=== PATIENT | female | born 1965 | race Caucasian/White ===

== ENCOUNTER 2022-01-23 07:26 | Inpatient (IN) ==
--- NOTE | 2022-01-19 10:00 | Anesthesiology Consultation ---
Date of Service January 19, 2022 Assessment & Plan (1) Encounter for pre-operative examination: - medical pre-op evaluation and clearance 01/15/2022: "...Preop for spinal surgery 01/23...In view of negative work up and no clinical symptoms DO NOT see any absolute contraindication to surgery..." - COVID screening: Per boat outboard engine mechanic on 01/15/2022: Travel screen negative, no known COVID-19 positive contacts or current COVID-19 related symptoms in past 2 weeks. Patient vaccinated. Surgeon arranging preop COVID testing, scheduled 01/21/2022. Awaiting results. Chart Review Chart Review: Acceptable Risk for Surgery and Patient NOT seen in Pre Admission Testing History Surgery Operation Date: 01/23/22 09:10 Proposed Procedures p L4-L5 Decompression Fusion Spinal Cord Monitoring - Dl Beckman DO Height/Weight Height: 5 ft 3 in Weight: 67.585 kg Allergies Allergy/AdvReac Type Severity Reaction Status Date / Time No Known Allergies Allergy Verified 01/15/22 10:47 Medications Home Medications Medication Instructions Recorded Confirmed Last Taken escitalopram oxalate 20 mg tablet 20 mg PO QAM 01/15/22 01/15/22 Unknown (Lexapro) estradiol 1 mg tablet 1 mg PO QAM 01/15/22 01/15/22 Unknown ibuprofen 200 mg capsule 400 mg PO QID PRN 01/15/22 01/15/22 Unknown ondansetron HCl 4 mg tablet 4 mg PO Q6H PRN 01/15/22 01/15/22 Unknown trazodone 100 mg tablet 200 mg PO HS 01/15/22 01/15/22 Unknown Past Medical History Medical History (Updated 01/19/22 @ 09:59 by Bambi Mcgee PA-C) Anxiety Cancer MELANOMA LEFT ARM/BACK-EXCISED Chronic back pain TO RIGHT LEG Depression Eating disorder ANOREXIA, BULIMIA-UNDER CONTROL CURRENTLY Esophagitis UNDER CONTROL Gastroparesis GERD (gastroesophageal reflux disease) UNDER CONTROL H/O Randi-Chicas syndrome Hiatal hernia History of unintended awareness under general anesthesia during a colonoscopy per PAT RN call with pt Temporomandibular joint disorder CLICKS-NO LOCKING Past Family History Family History Father Family history of diabetes mellitus Grandmother (Maternal) Family hx of colon cancer Grandfather (Maternal) Family hx of colon cancer Past Surgical History Surgical History (Updated 01/19/22 @ 09:53 by Bambi Mcgee PA-C) History of abdominoplasty History of appendectomy History of back surgery History of bladder surgery SLING History of cholecystectomy History of colonoscopy 2020 History of esophagogastroduodenoscopy (EGD) History of hysterectomy TOTAL Nausea and vomiting after administration of anesthetic agent Social History Smoking Status: Never smoker Do You Dip or Chew Tobacco: No Hx Alcohol Use: No Hx Substance Use: No Lab Results Anesthesia Preop Results Results Lab Comments: 01/05/2022 WBC: 6.1 H/H: 13/39 PLATELETS: 259 SODIUM: 139 POTASSIUM: 4.0 CHLORIDE: 105 CO2: 25 BUN: 11 CREATININE: 0.9 GLUCOSE: 72 PT: 11.2 PTT: 31.8 INR: 0.98 UA: small blood, small leuk esterase, no growth on culture Testing Electrocardiogram Date: 01/05/22 Sinus rhythm, rate 80 bpm Chest X-Ray No active cardiopulmonary disease
[~2022-01-23 07:26] MED LIST: ACETAMINOPHEN 500 MG TAB PO SCH; CeleBREX 200 MG CAP PO SCH; GABAPENTIN 900 MG DOSE PO SCH; LR 15ML/HR IV SCH; ceFAZolin 2000MG 2,000 MG/15 ML SYR IV SCH
[2022-01-23] MEDS ORDERED: MIDAZOLAM HCL 1 MG/ML 2ML VIAL ONE (08:18)
[2022-01-23] MEDS ORDERED: fentaNYL citrate 100 MCG/2 ML VIAL ONE (08:18)
[2022-01-23] MEDS ORDERED: PROPOFOL IV EMULSION 10 MG/ML 20 ML VIAL IV ONE (08:20)
[2022-01-23] MEDS ORDERED: ONDANSETRON INJ 2 MG/ML 2 ML VIAL ONE ×2 (08:20→10:42)
[2022-01-23] MEDS ORDERED: DEXAMETHASONE SOD INJ 4 MG/ML VIAL ONE (08:20)
[2022-01-23] MEDS ORDERED: LIDOCAINE 2% 2 ML VIAL/AMP(20MG/ML) INFIL ONE (08:20)
--- NOTE | 2022-01-23 08:27 | History & Physical Bridge Note ---
Date of Service January 23, 2022 History & Physical Bridge Note I have examined the patient, reviewed the History & Physical and in the interval since the performance of the History & Physical I have noted the following changes of clinical significance: no changes noted
--- NOTE | 2022-01-23 08:28 | History & Physical Report ---
Date of Service January 23, 2022 Assessment & Plan (1) Neurogenic claudication due to lumbar spinal stenosis: Plan: L4-L5 decompression fusion History of Present Illness Chief Complaint: Back and leg pain Primary Care Provider: NO PCP This is a 56-year-old female presents with chronic persistent back and leg pain. Failing course of nonoperative care is here for surgical invention. Allergies Allergy/AdvReac Type Severity Reaction Status Date / Time No Known Allergies Allergy Verified 01/23/22 07:59 Home Medications Medication Instructions Recorded Confirmed Type escitalopram oxalate 20 mg tablet 20 mg PO QAM 01/15/22 01/15/22 History (Lexapro) estradiol 1 mg tablet 1 mg PO QAM 01/15/22 01/15/22 History ibuprofen 200 mg capsule 400 mg PO QID PRN 01/15/22 01/23/22 History ondansetron HCl 4 mg tablet 4 mg PO Q6H PRN 01/15/22 01/15/22 History trazodone 100 mg tablet 200 mg PO HS 01/15/22 01/23/22 History Past Med/Surg History Medical History (Updated 01/23/22 @ 08:28 by Dl Beckman DO) Anxiety Cancer MELANOMA LEFT ARM/BACK-EXCISED Chronic back pain TO RIGHT LEG Depression Eating disorder ANOREXIA, BULIMIA-UNDER CONTROL CURRENTLY Esophagitis UNDER CONTROL Gastroparesis GERD (gastroesophageal reflux disease) UNDER CONTROL H/O Randi-Chicas syndrome Hiatal hernia History of unintended awareness under general anesthesia during a colonoscopy per PAT RN call with pt Temporomandibular joint disorder CLICKS-NO LOCKING Surgical History History of abdominoplasty History of appendectomy History of back surgery History of bladder surgery SLING History of cholecystectomy History of colonoscopy 2020 History of esophagogastroduodenoscopy (EGD) History of hysterectomy TOTAL Nausea and vomiting after administration of anesthetic agent Family History Father Family history of diabetes mellitus Grandmother (Maternal) Family hx of colon cancer Grandfather (Maternal) Family hx of colon cancer Social History Smoking Status: Never smoker Second Hand Exposure: Yes (AUNTS SMOKE); Do You Dip or Chew Tobacco: No; Hx Alcohol Use: No Hx Substance Use: No Preferred Language: [place] Communication Ability: Effective Site Engineer Required: No Beliefs That Will Affect Care: None Current Living Situation: Family Current Living Situation Comment: 10 YR OLD [facility] LIVES WITH PT current occupational status: retired Other Information That Helps Us Care for You: No Feels Safe at Home: Yes Safety Concerns: Feels Safe At This Time Assistive Devices: Contacts Physical Exam Physical Exam: Patient is alert and oriented Heart regular rhythm Lungs clear
[2022-01-23] MEDS ORDERED: BUPIVACAINE/EPINEPHRINE 0.25% 1:200,000 30 ML VIAL ONE (08:51)
[2022-01-23] MEDS ORDERED: ceFAZolin 330 MG/ML 1 GM VIAL ONE (08:52)
[2022-01-23] MEDS ORDERED: ONDANSETRON INJ 2 MG/ML 2 ML VIAL IV PRN (09:19)
[2022-01-23] MEDS ORDERED: PROMETHAZINE HCL 12.5 MG in SODIUM CHLORIDE 0.9% 50 ML IV PRN ×2 (09:19→12:32)
[2022-01-23] MEDS ORDERED: fentaNYL citrate 100 MCG/2 ML VIAL IV PRN (09:19)
[2022-01-23] MEDS ORDERED: ATROPINE SULFATE 0.1 MG/ML 10ML SYR IV PRN (09:19)
[2022-01-23] MEDS ORDERED: ePHEDrine sulfate 50 MG/ML AMP IV PRN (09:19)
[2022-01-23] MEDS ORDERED: HYDROmorphone INJ 2 MG/ML SYR/VIAL IV PRN (09:19)
[2022-01-23] MEDS ORDERED: FAMOTIDINE/PF 20 MG/2 ML VIAL IV ONE (09:20)
[2022-01-23] MEDS ORDERED: HYDROmorphone INJ 2 MG/ML SYR/VIAL ONE (09:43)
[2022-01-23] MEDS ORDERED: FLOSEAL HEMOSTATIC MATRIX 10ML TOP ONE (10:01)
[2022-01-23] MEDS ORDERED: NEOSTIGMINE METHYLSULFATE 1 MG/ML 10ML VIAL ONE (10:42)
[2022-01-23] MEDS ORDERED: GLYCOPYRROLATE 0.2 MG/ML VIAL ONE (10:42)
--- NOTE | 2022-01-23 10:52 | Operative Report ---
Post Operative Report Pre & Post Diagnosis Operation Date: 01/23/22 09:05 Pre-Op Diagnosis: Neurogenic claudication due to lumbar spinal stenosis Post-Op Diagnosis: Neurogenic claudication due to lumbar spinal stenosis I identified the patient and participated in the time-out.: Yes Procedure Operation Date: 01/23/22 09:05 Actual Procedures 1 revision decompression with bilateral medial facetectomies and foraminotomies L3-L4 L4-5. #2 posterior spinal fusion L4-5. #3 placement posterior instrumentation L4-5 per #4 interbody fusion L4-5 per #5 placement of titanium cage 13 x 22 mm at L4-5. #6 placement locally harvested morselized autograft in the posterior lateral gutters. #7 placement of I factor combined with V toss in the interbody space and posterior lateral gutters. Surgeon Dl Beckman, Public Service Administrator Jose G Celeste Estimated Blood Loss 75 Findings Consistent with Post-Op Diagnosis Specimens None Indications This is a 56-year-old female presents with above-mentioned diagnosis after failing course of nonoperative care she is here for surgical invention. Description of Procedure Patient was met with identified informed consent obtained. Patient was then taken to the operative suite underwent ablation placed in a prone position on the Trevon table atop the Nolberto frame. All bony prominences well-padded eyes inspected to ensure no external pressure placed upon the. This point lumbar spine was prepped and draped in a sterile fashion. Sharp dissection with the assistance of Bovie cautery was performed down to and exposing the remaining lamina transverse processes of L4-L5. There was a pars defect on the left with a fractured left sided facet from the previous laminotomy. I did perform a revision complete laminectomy of L4 partial laminectomy of L3 including bilateral medial facetectomies and foraminotomies addressing all neural compression. Pedicle screws then placed in L4-L5 bilaterally with the assistance of fluoroscopy and appropriately sized julio placed. By way of transforaminal approach on the right complete discectomy of L4-5 was performed endplates curetted to subcortical bleeding bone and a 13 x 22 mm titanium cage filled with I factor tapped in position. The rods then compressed locked in final position bilaterally. The transverse processes of L4-5 burred to subcortical bleeding bone. I factor combined with Vitoss and locally harvested morselized autograft was placed in the posterior gutters. 15 round SEBASTIAN drain inserted. The incision was then closed with 1 Vicryl the fascia 2-0 Vicryl subcutaneously and 4 Monocryl for final skin closure. Steri-Strip sterile dressings placed. Patient waken taken PACU stable condition. Please note spinal cord monitoring was utilized at the procedure no changes noted. Lastly Jose G Celeste was present at the entire surgery and while the patient positioning complex portions of the surgery and fascial closure. I attest to the content of the Intraoperative Record and any orders documented therein. Any exceptions are noted below.
--- NOTE | 2022-01-23 10:57 | Fluoroscopy Report ---
FL lumbar spine 2-3V CLINICAL HISTORY: L4-5 DFI COMPARISON STUDY: None. FLUOROSCOPY TIME: 16 seconds. FLUOROSCOPIC IMAGES: 2 FINDINGS: Fluoroscopy was provided during L4-L5 discectomy with interbody spacer placement, posterior decompression and bilateral pedicle screw fusion. IMPRESSION: Fluoroscopy provided during L4-L5 discectomy, posterior decompression and bilateral pedi radha screw fusion. ACT 112: Negative or not required by law. Electronically signed by: Lalo Torres M.D. 01/23/2022 10:55 AM
--- NOTE | 2022-01-23 12:02 | Anesthesiology Progress Note ---
Date of Service January 23, 2022 Anesthesia Post Procedure Vital Signs Vital Signs: Temp Pulse Pulse Resp BP Pulse Ox 01/23/22 11:55 56 L 17 117/79 97 01/23/22 11:45 60 16 125/76 98 01/23/22 11:35 65 17 128/77 95 01/23/22 11:25 65 14 122/79 97 01/23/22 11:15 63 14 109/69 95 01/23/22 11:09 36.0 C L 70 12 121/82 96 01/23/22 08:20 36.7 C 72 18 133/82 98 Pain Intensity Lower Back: Pain Intensity: 7 Back: Pain Intensity: 4 Transfer of Care Handoff Completed per policy Notes Mental Status: alert / awake / arousable and participated in evaluation Patient Amnestic to Procedure: Yes Nausea / Vomiting: adequately controlled Pain: adequately controlled Airway Patency, RR, SpO2: stable & adequate BP & HR: stable & adequate Hydration State: stable & adequate Anesthetic Complications: no major complications apparent
[2022-01-23] MEDS ORDERED: ACETAMINOPHEN 500 MG TAB PO PRN (12:32)
[2022-01-23] MEDS ORDERED: NALOXONE HCL 0.4 MG/1 ML VIAL/CARP IV PRN (12:32)
[2022-01-23] MEDS ORDERED: LORazepam 0.5 MG TAB PO PRN (12:32)
[2022-01-23] MEDS ORDERED: LORazepam 2 MG/1 ML VIAL IV PRN (12:32)
[2022-01-23] MEDS ORDERED: hydrOXYzine HCl 25 MG TAB PO PRN (12:32)
[2022-01-23] MEDS ORDERED: ACETAMINOPHEN 1,000 MG/100 ML VIAL IV PRN (12:32)
[2022-01-23] MEDS ORDERED: ALUMINUM/MAGNESIUM SUSP 30 ML UDC PO PRN (12:32)
[2022-01-23] MEDS ORDERED: HYDROmorphone INJ 1 MG/ML SYRINGE IV PRN (12:32)
[2022-01-23] MEDS ORDERED: DO NOT ADMINISTER FLU VACCINE PRN (12:32)
[2022-01-23] MEDS ORDERED: METOCLOPRAMIDE HCL INJ 5 MG/ML 2 ML VIAL IV PRN (12:32)
[2022-01-23] MEDS ORDERED: DO NOT ADMINISTER PNEUMOCOCCAL VACCINE PRN (12:32)
[2022-01-23] MEDS ORDERED: bisacodyL 10 MG SUPP PR PRN (12:32)
[2022-01-23] MEDS ORDERED: ONDANSETRON 4 MG OD TAB PO PRN (12:32)
[2022-01-23] MEDS ORDERED: SOD PHOSPHATE/SOD BIPHOSPHATE ENEMA 132 ML BTL PR PRN (12:32)
[2022-01-23] MEDS ORDERED: MAGNESIUM HYDROXIDE SUSP 30 ML UDC PO PRN (12:32)
[2022-01-23] MEDS ORDERED: FAMOTIDINE 20 MG TAB PO PRN (12:32)
[2022-01-23] MEDS: LACTATED RINGER'S 1,000 ML IV SCH ×2 (13:20→23:26)
--- NOTE | 2022-01-23 13:37 | Electrocardiogram Report ---
Test Reason : Blood Pressure : / mmHG Vent. Rate : 064 BPM Atrial Rate : 064 BPM P-R Int : 180 ms QRS Dur : 080 ms QT Int : 390 ms P-R-T Axes : 016 015 036 degrees QTc Int : 402 ms Normal sinus rhythm Normal ECG No previous ECGs available Confirmed by Alessandro Gil ([id number]) on 01/23/2022 1:37:02 PM Referred By: Dl Beckman Confirmed By:Neville Gil
--- NOTE | 2022-01-23 14:09 | Hospitalist Consultation ---
Date of Consultation January 23, 2022 Assessment & Plan (1) Neurogenic claudication due to lumbar spinal stenosis: POD#0 L4-5 decompression and fusion by Dr. Beckman activity and wound care orders as per ortho pain control with bowel regimen PT/OT monitor H/H for acute blood loss anemia and transfuse blood products PRN EBL 75cc (2) Anxiety: (3) Depression: stable, continue home meds (4) DVT prophylaxis: TEDs/SCDs as per spine ortho Thank you for this consultation. We will follow the patient with you during their hospital stay. You can reach a member of the [facility] Hospitalist Team 24/05 via the [facility] Hospitalist role in [place] Text. Supervising Physician Co-Signing Physician Notes Attending addendum The patient was seen and examined in medical floor in presence of the He is a status post L4-L5 decompression and fusion Has been complaining of a lot of pain but has drowsiness as well Denies any chest pain, palpitation or shortness of breath On examination Lying in bed with acute distress due to back pain Denies any pain in the right upper extremity as was complaining before surgery Hemodynamically stable Chestclear to auscultate bilaterally HeartS1, S2 regular Abdomenbenign CNSalert, awake and oriented x3. Has drowsiness likely secondary to anesthetics and effective surgery Her preop labs and imaging studies reviewed Remains medically stable following L4-L5 lumbar decompression fusion We will monitor hemoglobin and kidney function with electrolytes Agree with assessment and plan as outlined above by Mary Duncan History of Present Illness Reason for Consultation: Postop medical management Requesting Physician: Dr. Beckman Attending Physician: Dl Beckman DO History of Present Illness 56-year-old female with PMH anxiety, depression, and other problems listed below who is s/p L4-L5 decompression and fusion today by Dr. Beckman. Postoperatively, the patient is doing well. She continues to be moderately sedated however does arouse to loud verbal and tactile stimuli. Unable to provide history at this time however is resting in bed comfortably, vital signs are stable. Allergies Allergy/AdvReac Type Severity Reaction Status Date / Time No Known Allergies Allergy Verified 01/23/22 07:59 Home Medications Medication Instructions Recorded Confirmed Type escitalopram oxalate 20 mg tablet 20 mg PO QAM 01/15/22 01/15/22 History (Lexapro) estradiol 1 mg tablet 1 mg PO QAM 01/15/22 01/15/22 History ibuprofen 200 mg capsule 400 mg PO QID PRN 01/15/22 01/23/22 History ondansetron HCl 4 mg tablet 4 mg PO Q6H PRN 01/15/22 01/15/22 History trazodone 100 mg tablet 200 mg PO HS 01/15/22 01/23/22 History oxycodone 5 mg tablet 5 mg PO Q6H PRN #30 tab 01/23/22 Rx tramadol 50 mg tablet 50 mg PO Q6H PRN #30 tab 01/23/22 Rx Patient History Medical History Anxiety Cancer MELANOMA LEFT ARM/BACK-EXCISED Chronic back pain TO RIGHT LEG Depression Eating disorder ANOREXIA, BULIMIA-UNDER CONTROL CURRENTLY Esophagitis UNDER CONTROL Gastroparesis GERD (gastroesophageal reflux disease) UNDER CONTROL H/O Randi-Chicas syndrome Hiatal hernia History of unintended awareness under general anesthesia during a colonoscopy per PAT RN call with pt Temporomandibular joint disorder CLICKS-NO LOCKING Surgical History History of abdominoplasty History of appendectomy History of back surgery History of bladder surgery SLING History of cholecystectomy History of colonoscopy 2020 History of esophagogastroduodenoscopy (EGD) History of hysterectomy TOTAL Nausea and vomiting after administration of anesthetic agent Family History Father Family history of diabetes mellitus Grandmother (Maternal) Family hx of colon cancer Grandfather (Maternal) Family hx of colon cancer Social History Smoking Status: Never smoker Second Hand Exposure: Yes (AUNTS SMOKE); Do You Dip or Chew Tobacco: No; Hx Alcohol Use: No Hx Substance Use: No Preferred Language: Polish Communication Ability: Effective Cnc Grinder Required: No Beliefs That Will Affect Care: None Current Living Situation: Family Current Living Situation Comment: 10 YR OLD [facility] LIVES WITH PT current occupational status: retired Other Information That Helps Us Care for You: No Feels Safe at Home: Yes Safety Concerns: Feels Safe At This Time Assistive Devices: Contacts Review of Systems Review of Systems: Unobtainable due to reduced consciousness Physical Exam Constitutional: WD/WN, vitals as above Eyes: PERRL, conjunctivae normal, anicteric sclerae ENMT: external ear and nose normal, oropharynx normal Respiratory: normal respiratory effort, lungs clear to auscultation Cardiovascular: Rate/Rhythm: regular rate and regular rhythm Vessels: normal peripheral pulses Extremities: no edema Gastrointestinal (Abdomen): normal bowel sounds, soft, nontender, no hepatosplenomegaly Musculoskeletal: Extremities: no cyanosis and no clubbing S/p back surgery, drain in place draining bloody drainage. Unable to assess strength at this time due to sedation. Skin: no rashes, warm and dry Psychiatric: Orientation: + not alert Remains moderately sedated postoperatively however does arouse to loud verbal and tactile stimuli Results & Data Results & Data ([facility]) Vital Signs (Past 12 Hours) Vital Signs Temp Pulse Pulse Resp BP Pulse Ox 01/23/22 13:39 37 C 63 16 108/72 98 01/23/22 13:03 36.4 C L 61 12 110/72 97 01/23/22 12:15 57 L 12 108/72 96 01/23/22 12:05 36.3 C L 58 L 16 127/72 96 01/23/22 11:55 56 L 17 117/79 97 01/23/22 11:45 60 16 125/76 98 01/23/22 11:35 65 17 128/77 95 01/23/22 11:25 65 14 122/79 97 01/23/22 11:15 63 14 109/69 95 01/23/22 11:09 36.0 C L 70 12 121/82 96 01/23/22 08:20 36.7 C 72 18 133/82 98
[2022-01-23] MEDS: KETOROLAC TROMETHAMINE 15 MG/ML VIAL IV SCH ×3 (14:26→23:14)
[2022-01-23] MEDS: oxyCODONE HCL IR 5 MG TAB (IMMEDIATE RELEASE) PO PRN ×2 (17:58→21:53)
[2022-01-23] MEDS: ceFAZolin 1000MG 1,000 MG/7.5 ML SYR IV SCH ×2 (17:59→23:14)
[2022-01-23] MEDS: ONDANSETRON INJ 2 MG/ML 2 ML VIAL IV PRN (18:09)
[2022-01-23] MEDS: DOCUSATE SODIUM/SENNA 50/8.6MG TAB PO SCH (21:50)
[2022-01-23] MEDS: traZODone HCL 100 MG TAB PO SCH (21:50)
[2022-01-24] MEDS: oxyCODONE HCL IR 5 MG TAB (IMMEDIATE RELEASE) PO PRN ×4 (03:46→18:44)
[2022-01-24] MEDS: KETOROLAC TROMETHAMINE 15 MG/ML VIAL IV SCH (05:57)
[2022-01-24] MEDS: POLYETHYLENE (MIRALAX) 17 GM PACK PO SCH ×4 (05:57→18:44)
[2022-01-24] MEDS: traMADol HCL 50 MG TABLET PO PRN ×2 (05:57→21:29)
[2022-01-24 07:06] LABS: Basophils # (auto) 0.01 K/uL (0-0.2); Basophils % (auto) 0.1 %; Eosinophils # (auto) 0.05 K/uL (0-0.5); Eosinophils % (auto) 0.4 %; Hematocrit (blood only) 35.1 % (37-47); Hemoglobin 11.6 g/dL (12.0-16.0); Immature Granulocytes # (auto) 0.02 K/uL (0.00-0.02); Immature Granulocytes % (auto) 0.1 %; Lymphocytes # (auto) 2.24 K/uL (1.2-3.4); Lymphocytes % (auto) 16.5 %; Mean Corpuscular Hemoglobin 30.7 pg (25-34); Mean Corpuscular Volume 92.9 fL (80-100); Mean Platelet Volume 10.4 fL (7.4-10.4); Monocytes # (auto) 0.99 K/uL (0.11-0.59); Monocytes % (auto) 7.3 %; Neutrophils # (auto) 10.28 K/uL (1.4-6.5); Neutrophils % (auto) 75.6 %; Platelet Count 267 K/uL (130-400); RDW Coefficient of Variation 13.8 % (11.5-14.5); RDW Standard Deviation 46.8 fL (36.4-46.3); Red Blood Count 3.78 M/uL (4.2-5.4); White Blood Count 13.59 K/uL (4.8-10.8)
[2022-01-24 07:29] LABS: BUN Creatinine Ratio 16.9 (10-20); Calcium 8.4 mg/dl (8.5-10.1); Creatinine Clr Calc Pharmacy 68.9 ml/min; Est GFR (African American) 90.7 ml/min; Est GFR (Non-African American) 78.3 ml/min; Potassium 3.7 mmol/L (3.5-5.1)
[2022-01-24] MEDS: ONDANSETRON INJ 2 MG/ML 2 ML VIAL IV PRN ×2 (08:15→15:15)
[2022-01-24] MEDS: estradioL 1 MG TAB PO SCH (08:22)
[2022-01-24] MEDS: ESCITALOPRAM OXALATE 20 MG TAB PO SCH (08:22)
[2022-01-24] MEDS: dexAMETHasone 6 MG in SYRINGE 0 ML IV SCH (08:23)
--- NOTE | 2022-01-24 10:10 | Orthopedic Progress Note ---
Date of Service January 24, 2022 Assessment & Plan (1) Neurogenic claudication due to lumbar spinal stenosis: Plan: At this time initiate physical therapy monitor SEBASTIAN output hopefully discharge home in the next few days. Admission and Anticipated Discharge Date Admission Date: January 23, 2022 Subjective Patient complaining of back and bilateral leg pain. While she does feel a bit more comfortable. Physical Exam Physical Exam: Patient is here for strength testing of extremities. She does have significant tenderness to palpation of the right IT band. Results & Data ([facility]) Vital Signs (Past 12 Hours) Vital Signs Temp Pulse Resp BP Pulse Ox 01/24/22 07:26 36.6 C 76 12 86/52 L 92 01/24/22 04:09 36.7 C 79 16 92/56 L 92 01/23/22 22:21 36.6 C 80 16 96/59 L 94
[2022-01-24] MEDS: HYDROmorphone INJ 0.5 MG/0.5 ML SYR IV PRN ×2 (11:01→15:15)
[2022-01-24] MEDS: CALCIUM CARBONATE 500 MG CHEWABLE TAB PO SCH ×2 (12:49→21:30)
--- NOTE | 2022-01-24 16:29 | Hospitalist Progress Note ---
Date of Service January 24, 2022 Assessment & Plan (1) Neurogenic claudication due to lumbar spinal stenosis: Plan: (1) Neurogenic claudication due to lumbar spinal stenosis: POD#1 L4-5 decompression and fusion by Dr. Beckman activity and wound care orders as per ortho pain control with bowel regimen PT/OT, Incentive spirometer monitor H/H for acute blood loss anemia and transfuse blood products PRN EBL 75cc Hb 11.6 today, Pt couldn't be located in OP epic emr for reference Hb level. #. Indigestion/belly discomfort No gas/bm after Sx Tums/bowel regimen c/t monitor, if no improvement/worsens -> XR Abd, pt made aware. (2) Anxiety: (3) Depression: stable, continue home meds (4) DVT prophylaxis: TEDs/SCDs or chemoprophylaxis as per spine ortho Thank you for this consultation. We will follow the patient with you during their hospital stay. You can reach a member of the [facility] Hospitalist Team 24/05 via the [facility] Hospitalist role in [place] Text. Admission and Anticipated Discharge Date Admission Date: January 23, 2022 Subjective Patient seen and examined at bedside as a follow-up of neurogenic claudication due to lumbar spinal stenosis status post L4-5 decompression and fusion by Dr. Beckman on 01/23/2022. Patient lying in bed, on room air, NAD, no new acute events overnight. Patient reports some belly discomfort and has not moved gas or bowel after the surgery. Will add Tums for indigestion, and bowel regimen. Continue to monitor, x-ray belly if with no improvement, patient made aware. Patient does complain history of radiating pain to her right upper extremity. Patient does report moderate pain at operative site and not sure whether her radicular lower extremity pain has improved or not. Patient denies headache/dizziness/chest pain/palpitation/other review of symptoms. Physical Exam Physical Exam: GENERAL: Alert and oriented x3. NAD, on RA. HEENT: No pallor, no icterus. Pupils equal, round and reactive to light. Oral mucosa moist. NECK: No JVD, no neck masses. HEART: S1 and S2 heard. Regular rate and rhythm. No murmur, no gallop. RESPIRATORY SYSTEM: Normal AP diameter. No accessory muscle use. No wheezing, no crackles. ABDOMEN: Soft, bowel sounds present, nontender, no distention. CENTRAL NERVOUS SYSTEM: No facial droop. Speech is clear. Obeys simple commands. Moves extremities. EXTREMITIES: No edema, no erythema seen. Lower back w/ clean dressing and SEBASTIAN drain w/ serosanguineous collection noted. Results & Data Results & Data ([facility]) Vital Signs (Past 12 Hours) Vital Signs Temp Pulse Resp BP Pulse Ox 01/24/22 14:43 36.9 C 71 14 120/73 93 01/24/22 12:01 36.8 C 71 14 109/69 92 01/24/22 07:26 36.6 C 76 12 86/52 L 92
[2022-01-24] MEDS: diphenhydrAMINE Capsule 25 MG CAP PO PRN (16:54)
[2022-01-24] MEDS: DOCUSATE SODIUM/SENNA 50/8.6MG TAB PO SCH (21:30)
[2022-01-24] MEDS: traZODone HCL 100 MG TAB PO SCH (21:30)
[2022-01-25] MEDS: POLYETHYLENE (MIRALAX) 17 GM PACK PO SCH ×6 (00:36→23:04)
[2022-01-25] MEDS: oxyCODONE HCL IR 5 MG TAB (IMMEDIATE RELEASE) PO PRN ×5 (00:57→23:03)
[2022-01-25] MEDS: diphenhydrAMINE Capsule 25 MG CAP PO PRN ×2 (03:49→15:10)
[2022-01-25 06:35] LABS: Hematocrit (blood only) 35.9 % (37-47); Hemoglobin 11.5 g/dL (12.0-16.0); Mean Corpuscular Hemoglobin 30.4 pg (25-34); Mean Platelet Volume 10.4 fL (7.4-10.4); Platelet Count 254 K/uL (130-400); RDW Coefficient of Variation 14.1 % (11.5-14.5); RDW Standard Deviation 48.8 fL (36.4-46.3); Red Blood Count 3.78 M/uL (4.2-5.4)
[2022-01-25 06:57] LABS: BUN Creatinine Ratio 21.8 (10-20); Creatinine Clr Calc Pharmacy 73.3 ml/min; Est GFR (African American) 97.8 ml/min; Est GFR (Non-African American) 84.4 ml/min; Magnesium 1.8 mg/dl (1.7-2.4); Potassium 3.8 mmol/L (3.5-5.1)
--- NOTE | 2022-01-25 07:50 | Orthopedic Progress Note ---
Date of Service January 25, 2022 Assessment & Plan (1) Neurogenic claudication due to lumbar spinal stenosis: Plan: Patient stable postop day #2. She may be getting a little bit of orthostatic hypotension when she first stands up. Encouraged her to continue with oral fluids. We will continue with GI DVT prophylaxis as well as physical therapy and pain control. If all goes well today we may be able to let her go home tomorrow. Admission and Anticipated Discharge Date Admission Date: January 23, 2022 Subjective Patient is seen bedside in room 316. She is sitting upright in the chair and appears to be comfortable. She states that she still is having some pain in the right lower extremity and numbness and tingling in the right upper extremity with numbness in the thumb index and middle finger. This was present prior to her surgery. She has had several episodes where she gets dizzy when she first stands up. She denies any other numbness, tingling, or paresthesias Physical Exam Physical Exam: On exam she is alert and oriented. Her abdomen soft nontender calves are supple nontender. Strength and sensation are grossly intact her gait was not observed. Her SEBASTIAN drain is in place and holding suction she has had 25 cc out on this current shift and 55 on the last. Her hemoglobin is 11.5 and her hematocrit is 35.9. Results & Data ([facility]) Vital Signs (Past 12 Hours) Vital Signs Temp Pulse Resp BP Pulse Ox 01/25/22 07:29 36.8 C 77 16 98/63 L 91 01/24/22 22:58 36.7 C 75 16 92/55 L 92
[2022-01-25] MEDS: ONDANSETRON INJ 2 MG/ML 2 ML VIAL IV PRN ×2 (08:13→21:22)
[2022-01-25] MEDS ORDERED: SODIUM CHLORIDE 0.9% 1000ML 1,000 ML IV SCH (08:15)
[2022-01-25] MEDS: estradioL 1 MG TAB PO SCH (08:17)
[2022-01-25] MEDS: traMADol HCL 50 MG TABLET PO PRN ×2 (08:17→21:21)
[2022-01-25] MEDS: ESCITALOPRAM OXALATE 20 MG TAB PO SCH (08:17)
[2022-01-25] MEDS: dexAMETHasone 6 MG in SYRINGE 0 ML IV SCH (08:17)
[2022-01-25] MEDS: CALCIUM CARBONATE 500 MG CHEWABLE TAB PO SCH ×2 (08:17→21:21)
[2022-01-25] MEDS ORDERED: KETOROLAC TROMETHAMINE 15 MG/ML VIAL IV PRN (13:44)
[2022-01-25] MEDS ORDERED: bisacodyL 10 MG SUPP PR ONE (13:48)
--- NOTE | 2022-01-25 14:00 | Hospitalist Progress Note ---
Date of Service January 25, 2022 Assessment & Plan (1) Neurogenic claudication due to lumbar spinal stenosis: Plan: (1) Neurogenic claudication due to lumbar spinal stenosis: POD#2 L4-5 decompression and fusion by Dr. Beckman activity and wound care orders as per ortho pain control with bowel regimen PT/OT, Incentive spirometer monitor H/H for acute blood loss anemia and transfuse blood products PRN EBL 75cc Hb 11.5 today, Pt couldn't be located in OP epic emr for reference Hb level. #. Indigestion/belly discomfort No gas/bm after Sx per Pt; using bowel regimen including OK Tums/bowel regimen c/t monitor, XR KUB #. Low BP/Nausea running low, and pt nauseous likely 2/2 narcotics use try to cut down on narcotics, IVF Iv toradol as needed on board. continue to monitor. (2) Anxiety: (3) Depression: stable, continue home meds (4) DVT prophylaxis: TEDs/SCDs or chemoprophylaxis as per spine ortho Thank you for this consultation. We will follow the patient with you during their hospital stay. You can reach a member of the [facility] Hospitalist Team 24/05 via the [facility] Hospitalist role in [place] Text. Admission and Anticipated Discharge Date Admission Date: January 23, 2022 Subjective Patient seen and examined at bedside as a follow-up of neurogenic claudication due to lumbar spinal stenosis status post L4-5 decompression and fusion by Dr. Beckman on 01/23/2022. Patient lying in bed, on room air, NAD, no new acute events overnight. Patient reports some ongoing belly discomfort and has not moved gas or bowel after the surgery per patient. Continue with bowel regimen, likely use OK. X-ray abdomen.. Patient does complain history of radiating pain to her right upper extremity which was present from before operation. Patient does report moderate pain at operative site and complaints of right lower extremity weakness/numbness. Patient denies headache/dizziness/chest pain/palpitation/other review of symptoms. Physical Exam Physical Exam: GENERAL: Alert and oriented x3. NAD, on RA. HEENT: No pallor, no icterus. Pupils equal, round and reactive to light. Oral mucosa moist. NECK: No JVD, no neck masses. HEART: S1 and S2 heard. Regular rate and rhythm. No murmur, no gallop. RESPIRATORY SYSTEM: Normal AP diameter. No accessory muscle use. No wheezing, no crackles. ABDOMEN: Soft, bowel sounds present, nontender, no distention. CENTRAL NERVOUS SYSTEM: No facial droop. Speech is clear. Obeys simple commands. Right property handler weak, RLE weak. EXTREMITIES: No edema, no erythema seen. Lower back w/ clean dressing and SEBASTIAN drain w/ serosanguineous collection noted. Results & Data Results & Data ([facility]) Vital Signs (Past 12 Hours) Vital Signs Temp Pulse Resp BP Pulse Ox 01/25/22 07:29 36.8 C 77 16 98/63 L 91
--- NOTE | 2022-01-25 15:39 | XRay Report ---
XR KUB/Abdomen 1 view CLINICAL HISTORY: abd pain TECHNIQUE: 1 view of the abdomen was obtained. Comparison: Comparison is made to lumbar spine fluoroscopy 01/23/2022 FINDINGS: Right upper quadrant surgical clips are seen. The osseous structures are grossly unremarkable. No sig nificant small bowel gas is seen. No obstruction is noted. Large stool burden is seen without evidenc e of inspissated stool in the rectum. IMPRESSION: Nonobstructive bowel gas pattern. ACT 112: Negative or not required by law. Electronically signed by: Julio Nieto M.D. 01/25/2022 3:37 PM
[2022-01-25] MEDS: DOCUSATE SODIUM 100 MG CAP PO SCH (21:21)
[2022-01-25] MEDS: traZODone HCL 100 MG TAB PO SCH (21:22)
[2022-01-25] MEDS: DOCUSATE SODIUM/SENNA 50/8.6MG TAB PO SCH (21:22)
[2022-01-26] MEDS: traMADol HCL 50 MG TABLET PO PRN (02:20)
[2022-01-26] MEDS: oxyCODONE HCL IR 5 MG TAB (IMMEDIATE RELEASE) PO PRN ×2 (05:24→11:41)
[2022-01-26] MEDS: POLYETHYLENE (MIRALAX) 17 GM PACK PO SCH ×2 (05:25→09:07)
[2022-01-26 06:41] LABS: Hematocrit (blood only) 35.2 % (37-47); Hemoglobin 11.5 g/dL (12.0-16.0); Mean Corpuscular Hemoglobin 30.7 pg (25-34); Mean Corpuscular Hgb Conc 32.7 g/dL (32-36); Mean Corpuscular Volume 93.9 fL (80-100); Mean Platelet Volume 10.8 fL (7.4-10.4); Platelet Count 261 K/uL (130-400); RDW Coefficient of Variation 13.7 % (11.5-14.5); RDW Standard Deviation 47.3 fL (36.4-46.3); Red Blood Count 3.75 M/uL (4.2-5.4); White Blood Count 10.34 K/uL (4.8-10.8)
[2022-01-26] MEDS: ESCITALOPRAM OXALATE 20 MG TAB PO SCH (09:06)
[2022-01-26] MEDS: estradioL 1 MG TAB PO SCH (09:06)
[2022-01-26] MEDS: CALCIUM CARBONATE 500 MG CHEWABLE TAB PO SCH (09:07)
[2022-01-26] MEDS: dexAMETHasone 6 MG in SYRINGE 0 ML IV SCH (09:07)
[2022-01-26] MEDS: DOCUSATE SODIUM 100 MG CAP PO SCH (09:07)
[2022-01-26] MEDS: diphenhydrAMINE Capsule 25 MG CAP PO PRN (09:13)
--- NOTE | 2022-01-26 09:21 | Discharge Summary ---
Date of Service January 26, 2022 Admission HPI Per Admitting Provider This is a 56-year-old female presents with chronic persistent back and leg pain. Failing course of nonoperative care is here for surgical invention. Principal Diagnosis Lumbar spinal stenosis with radiculopathy Discharge Data Allergies Allergy/AdvReac Type Severity Reaction Status Date / Time No Known Allergies Allergy Verified 01/23/22 07:59 Consultations 01/23/22 12:32 Consult Hospitalist Routine Procedures Performed Operation Date: 01/23/22 09:05 Actual Procedures p L4-L5 Decompression Fusion, Spinal Cord Monitoring(Not Applicable) - Dl Beckman DO Ordered Studies 01/23/22 09:05 [place] lumbar spine 2-3V Routine Hospital Course (1) Neurogenic claudication due to lumbar spinal stenosis: Patient 1 lumbar depression fusion tolerates well second orthopedic for postoperative. Postop day 1 she was up and ambulating. Postop day #2 on postop day #3 pain was controlled SEBASTIAN drain decreased appropriate. Good strength testing. Subsequent discharge home. Discharge orders instructions from the chart for further review. Total Time Total Time Spent Total Time Spent (In Minutes): 20 minutes Discharge Plan Discharge Items Patient Disposition: Home - Self-Care Reason For Visit: Radiculopathy, Lumbar Region Discharge Diagnosis: Lumbar spinal stenosis with radiculopathy Activity: As commented below Non-emergency contact: Primary Care Provider Call non-emergency contact if: you have any medication questions Follow-up/Referrals: PCP,NO [Primary Care Provider] - Diet: Regular Addtl Attending Provider Instructions: ACTIVITY RECOMMENDATIONS: SELF CARE INSTRUCTIONS AFTER THORACIC/LUMBAR FUSIONS 1. You may walk to your tolerance. It is good exercise for your legs and back. Expect some back and intermittent leg aches and pains. 2. You may perform "counter-top" level activities (make a sandwich, ruth with a project, etc.). 3. No bending or lifting of more than 10 pounds or back twisting of any nature (roll like a log when turning in bed). 4. You may ride in a car for 20-30 minutes at a time. No driving until after your first visit with your doctor. 5. Frequent changes of position and restricting sitting to 30 minutes at a time will help limit the amount of back spasms and stiffness you may experience. 6. You may discontinue the use of ambulatory aids (cane, crutches, etc.) once your strength and confidence allow. 7. You may seismic prospecting supervisor the shower and let water strike your incision when you arrive home at least once daily. Do not take a tub bath, sit in a hot tub or go into a swimming pool until after your first recheck in the office. SPECIAL CARE INSTRUCTIONS: VERY IMPORTANT TO READ AND REVIEW A. Your surgical incision has been closed with a cosmetic suture under the skin that will dissolve in about 6 weeks. In 14 days, you can use a pair of clean scissors and cut the suture that is left outside of the skin at the ends of your incision. 1. The small skin tapes can be removed 7 days after surgery if they have not fallen off by that point. 2. You may keep the wound open to air as much as possible to promote healing after post-op day number 5 unless told otherwise by your doctor. 3. If you think the wound looks like it is becoming infected (redness or worsening drainage) and/or you are experiencing fever, chill or worsening back pain and muscle spasms, contact the office so that we may evaluate you as soon as possible. B. Complications are uncommon, but please contact us if you have any signs or symptoms of: 1. wound infection (fever higher than 102.5 degrees F, redness, separation of wound, drainage, or increasing pain from the incision) 2. blood clots in legs (pain, swelling, redness and warmth in legs) 3. urinary tract infection (fever higher than 102.5 degrees F, burning upon urination or increased frequency of urination) 4. nerve problems (inability to walk on your toes or heels, numbness, loss of bowel or bladder control) 5. any other symptoms that concern you C. Please call the office at if you have any concerns or questions about your operation or recovery. D. No smoking! Smoking drastically decreases the chance of a solid fusion. E. Do not take any anti-inflammatory medications (Indocin, Advil, Motrin, Aspirin, Naprosyn, etc.) as these may inhibit the chance of a solid fusion. Tylenol is okay to take for pain. MANAGING PAIN AFTER SPINAL SURGERY 1. Narcotic medication is intended for short-term use and will be provided for surgical pain. Surgical pain usually lasts for a period of 4-6 weeks. Narcotic medication includes Percocet, Vicodin, Darvocet, Tylenol #3 or Lortab. 2. Longer-term pain is more appropriately treated with non-narcotic medication such as Tylenol ES. 3. Muscle spasm is not appropriately treated with narcotics. Muscle relaxers such as Soma, Flexeril or Skelaxin can be used along with Tylenol ES. 4. Remember that we all live with some "aches and pains". This is not unusual or uncommon after an injury or as we get older. a. Back pain is expected and may include muscle spasms for 4 to 6 weeks after surgery. The pain should gradually improve. If the pain worsens for no apparent reason, please contact the office. b. Intermittent leg pain may also be experienced and should not be concerned about unless it worsens for no apparent reason. If so, please contact the office. 5. We will provide appropriate medication within the normal guidelines of their prescribed use. We will also be very cautious and aware of potential abuse and extended duration of patients' medication needs. a. Pain medications are for your comfort and to assist with sleep and rest so that the tissue can heal. They are not provided in order to return to normal activity and should not be used through the day. To do so or worsening pain at night can result from ongoing tissue damage and development of tolerance to the prescribed medicine. 6. Please allow 2-3 days to process refills. Prescriptions will not be mailed but must be picked up at the office. FOLLOW UP VISIT: Keep your scheduled follow-up appointment. Any questions, please call the office at . Pending Studies at Discharge: No Stand-Alone Forms: My [facility], Smoking Cessation Medications and MA Order Prescriptions: New tramadol 50 mg tablet 50 mg PO Q6H PRN (Reason: pain, moderate) Qty: 30 RF: 0 oxycodone 5 mg tablet 5 mg PO Q6H PRN (Reason: pain, severe) Qty: 30 RF: 0 Continued ondansetron HCl 4 mg Tablet 4 mg PO Q6H PRN (Reason: Nausea) RF: 0 estradiol 1 mg Tablet 1 mg PO QAM RF: 0 trazodone 100 mg Tablet 200 mg PO HS RF: 0 escitalopram oxalate [Lexapro] 20 mg Tablet 20 mg PO QAM RF: 0 Discontinued ibuprofen 200 mg Capsule 400 mg PO QID PRN (Reason: Pain) RF: 0 Discharge Orders: Discharge Order (Routine); Ordered 01/26/22 Ordered By: Dl Beckman Admission Data Admit Date/Time: 01/23/22 10:55 Attending Provider: Dl Beckman Admit Provider: Dl Beckman Primary Care Provider: PCP,NO Other Providers: Ny Viramontes
--- NOTE | 2022-01-26 13:17 | Hospitalist Progress Note ---
Date of Service January 26, 2022 Assessment & Plan (1) Neurogenic claudication due to lumbar spinal stenosis: Plan: (1) Neurogenic claudication due to lumbar spinal stenosis: POD#3 L4-5 decompression and fusion by Dr. Beckman activity and wound care orders as per ortho pain control with bowel regimen PT/OT, Incentive spirometer monitor H/H for acute blood loss anemia and transfuse blood products PRN EBL 75cc Hb 11.5 today, Pt couldn't be located in OP epic emr for reference Hb level. Will need close follow-up with PCP and orthospine as an outpatient. Patient also has RUE numbness/tingling/weakness. Patient made aware to follow-up with orthospine. #. Indigestion/belly discomfort No gas/bm after Sx per Pt; using bowel regimen including [place] Tums/bowel regimen Patient tolerating diet, has moved bowel, belly pain has improved, x-ray KUB 01/25 reviewed with no obstruction. #. Low BP/Nausea running low, and pt nauseous likely 2/2 narcotics use Minimize narcotics use. continue to monitor. (2) Anxiety: (3) Depression: stable, continue home meds (4) DVT prophylaxis: TEDs/SCDs or chemoprophylaxis as per spine ortho Thank you for this consultation. We will follow the patient with you during their hospital stay. You can reach a member of the [facility] Hospitalist Team 24/05 via the [facility] Hospitalist role in [place] Text. Admission and Anticipated Discharge Date Admission Date: January 23, 2022 Subjective Patient seen and examined at bedside as a follow-up of neurogenic claudication due to lumbar spinal stenosis status post L4-5 decompression and fusion by Dr. Beckman on 01/23/2022. Patient was working with PT, on room air, NAD, no new acute events overnight. Patient tolerating diet and has moved bowel. Belly pain has improved. RLE weakness has improved. Continue with bowel regimen upon discharge. Patient does complain history of radiating pain to her right upper extremity which was present from before operation. Patient reports operative pain under control and complaints of right lower extremity weakness/numbness which is somewhat improved today. Patient denies headache/dizziness/chest pain/palpitation/other review of symptoms. Physical Exam Physical Exam: GENERAL: Alert and oriented x3. NAD, on RA. HEENT: No pallor, no icterus. Pupils equal, round and reactive to light. Oral mucosa moist. NECK: No JVD, no neck masses. HEART: S1 and S2 heard. Regular rate and rhythm. No murmur, no gallop. RESPIRATORY SYSTEM: Normal AP diameter. No accessory muscle use. No wheezing, no crackles. ABDOMEN: Soft, bowel sounds present, nontender, no distention. CENTRAL NERVOUS SYSTEM: No facial droop. Speech is clear. Obeys simple commands. 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 EXTREMITIES: No edema, no erythema seen. Lower back w/ clean dressing and SEBASTIAN drain w/ serosanguineous minimal collection noted. Results & Data Results & Data ([facility]) Vital Signs (Past 12 Hours) Vital Signs Temp Pulse Pulse Resp BP Pulse Ox 01/26/22 11:23 36.8 C 57 L 74 14 119/78 94 01/26/22 07:17 36.8 C 74 14 119/78 94
== END 2022-01-26 13:20 | disposition home or self-care (01) | DRG 455 ==
LOC: ASU 07:26 → 3E 10:55

== ENCOUNTER 2022-02-06 15:36 | Inpatient (IN) ==
[2022-02-06] MEDS ORDERED: LORazepam 2 MG/1 ML VIAL IV STA (16:44)
[2022-02-06] MEDS ORDERED: HYDROmorphone INJ 1 MG/ML SYRINGE IV STA ×2 (16:45→19:11)
--- NOTE | 2022-02-06 16:52 | Emergency Department Note ---
History of Present Illness General Chief complaint: Back Injury/Pain Stated complaint: SURG COMPLICATIONS, INCONTINENCE, BACK/LEG PAIN Time Seen by Provider: 02/06/22 16:25 Source: patient, family ( who is at the bed), RN notes reviewed and old records reviewed Mode of arrival: ambulatory Limitations: no limitations History of Present Illness Maximum Pain Intensity: 8 This patient is a 56-year-old female comes in with back pain and incontinence of her bowel and bladder. She was operated on by Dr. Beckman on January 23 for L4-5 disc. He went in a week later and drain some fluid in place to drain she was h ospitalized this past through Wednesday. She said for the last week to 10 days she has had trouble with her bowel and bladder is where she cannot control it it was particularly worse last night. She had a bladder sling in December and did not think much of it at first with her urine because of this. She has pain which radiates down her right leg she also some numbness. She had a low-grade temperature up to 100.7 yesterday. She is had no chest pain she had a little bit of runny nose no shortness of breath. She is mild lower back pain. It hurts worse when she moves. She called Dr. Beckman's office and was told to come to the ER here. Home Medications Medication Instructions Recorded Confirmed Type escitalopram oxalate 20 mg tablet 20 mg PO QAM 01/15/22 01/28/22 History (Lexapro) estradiol 1 mg tablet 1 mg PO QAM 01/15/22 01/28/22 History ondansetron HCl 4 mg tablet 4 mg PO Q6H PRN 01/15/22 01/28/22 History trazodone 100 mg tablet 200 mg PO HS 01/15/22 01/28/22 History oxycodone 5 mg tablet 5 mg PO Q6H PRN #30 tab 01/23/22 01/28/22 Rx tramadol 50 mg tablet 50 mg PO Q6H PRN #30 tab 01/23/22 01/28/22 Rx hydroxyzine HCl 25 mg tablet 25 mg PO Q6 PRN #30 tab 02/04/22 Rx tramadol 50 mg tablet 50 mg PO Q6H PRN #30 tab 02/04/22 Rx Allergies Allergy/AdvReac Type Severity Reaction Status Date / Time No Known Allergies Allergy Verified 01/28/22 16:20 Past Med/Surg History Medical History Anxiety Cancer MELANOMA LEFT ARM/BACK-EXCISED Chronic back pain TO RIGHT LEG Depression Eating disorder ANOREXIA, BULIMIA-UNDER CONTROL CURRENTLY Esophagitis UNDER CONTROL Gastroparesis GERD (gastroesophageal reflux disease) UNDER CONTROL H/O Randi-Chicas syndrome Hiatal hernia History of unintended awareness under general anesthesia during a colonoscopy per PAT RN call with pt Temporomandibular joint disorder CLICKS-NO LOCKING Surgical History History of abdominoplasty History of appendectomy History of back surgery History of bladder surgery SLING History of cholecystectomy History of colonoscopy 2020 History of esophagogastroduodenoscopy (EGD) History of hysterectomy TOTAL Nausea and vomiting after administration of anesthetic agent Family History Father Family history of diabetes mellitus Grandmother (Maternal) Family hx of colon cancer Grandfather (Maternal) Family hx of colon cancer Social History Smoking Status: Never smoker Second Hand Exposure: Yes (AUNTS SMOKE); Hx Alcohol Use: No Hx Substance Use: No Preferred Language: Irish Communication Ability: Effective Company Dancer Required: No Beliefs That Will Affect Care: None Current Living Situation: Family Current Living Situation Comment: [address] YR OLD [facility]ANDSON LIVES WITH PT current occupational status: retired Feels Safe at Home: Yes Assistive Devices: Walker Review of Systems A total of 10 systems reviewed and were otherwise negative Physical Exam Vital Signs Vital Signs - 24 hr 02/06/22 15:43 Temperature 36.6 C Temperature Source Temporal Artery Scan Pulse Rate 122 H Pulse Rhythm Regular Pulse Strength Normal Respiratory Rate 20 Respiratory Effort / Characteristics Non-Labored Spontaneous Respiratory Depth Normal Respiratory Pattern Regular Blood Pressure 118/73 Blood Pressure Mean 88 Blood Pressure Position Sitting Pulse Oximetry 94 Oxygen Delivery Method Room Air Sepsis Recent Fever Within 48 Hours No Sepsis New/Unexplained Change in Mental Status No Sepsis Action Taken by Nursing No Action Required General: Well developed well nourished middle-aged female who appears uncomfortable but in no acute distress, breathing comfortably on room air. Normal speech HEENT: Normal cephalic atraumatic. Pupils are equal round and reactive to light. Extraocular movements are intact. Oropharynx is pink with moist mucous membranes. No swelling of the mouth lips or tongue. Neck: Supple with a midline trachea. No meningeal signs or stiffness, no JVD or bruits. No Stridor. Chest: Clear to auscultation bilaterally. No wheezes or rhonchi. No increased work of breathing. Heart: Regular rate and rhythm without murmurs or gallops. Abdomen: Soft nontender, nondistended without rebound guarding or rigidity. Extremities: No cyanosis clubbing or edema. No calf tenderness or assymetry Spine/Back. Non tender to palpation. No CVA tenderness. She has well-healing incisions without redness or drainage or pus. Skin: Good turgor without rashes. Neurologic exam: Cranial nerves two through 12 are intact. Motor and sensation are intact and symmetrical throughout exception of she has some limitation right leg with flexion extension secondary to pain and or weakness. She does have intact reflexes in that lower extremity both Achilles and patella. She subjectively has numbness to palpation in the back and buttock area Course Administered Medications Discontinued Medications Bupivacaine HCl (Bupivacaine 0.5 % 5 Mg/1 Ml Mpf 30ml Vial) Confirm Administered Dose 30 ml .ROUTE .STK-MED ONE Stop: 02/06/22 20:20 Last Admin: 02/06/22 21:33 Dose: Not Given Documented by: [id number] Cefazolin Sodium (Cefazolin 330 Mg/Ml 1 Gm Vial) Confirm Administered Dose 990 mg .ROUTE .STK-MED ONE Stop: 02/06/22 20:56 Last Admin: 02/06/22 21:27 Dose: 990 mg Documented by: [id number] Cefazolin Sodium (Cefazolin 2,000 Mg/15 Ml Iv Push) Confirm Administered Dose 2,000 mg IV .STK-MED ONE Stop: 02/06/22 20:57 Last Admin: 02/06/22 20:58 Dose: 2,000 mg Documented by: [id number] Epinephrine HCl (Epinephrine Inj 1 Mg/Ml Amp) Confirm Administered Dose 1 mg .ROUTE .STK-MED ONE Stop: 02/06/22 20:20 Last Admin: 02/06/22 21:33 Dose: Not Given Documented by: [id number] Fentanyl Citrate (Fentanyl Citrate 100 Mcg/2 Ml Vial) 25 mcg IV Q5M PRN PRN Reason: PACU Use Only-Pain Stop: 02/07/22 04:28 Last Admin: 02/06/22 22:35 Dose: 25 mcg Documented by: [id number] Admin: 02/06/22 22:30 Dose: 25 mcg Documented by: [id number] Admin: 02/06/22 22:25 Dose: 25 mcg Documented by: [id number] Admin: 02/06/22 22:20 Dose: 25 mcg Documented by: [id number] Hydromorphone HCl (Hydromorphone Inj 1 Mg/Ml Syringe) 1 mg IV NOW STA Stop: 02/06/22 16:46 Last Admin: 02/06/22 17:33 Dose: 1 mg Documented by: [id number] Hydromorphone HCl (Hydromorphone Inj 1 Mg/Ml Syringe) 1 mg IV NOW STA Stop: 02/06/22 19:12 Last Admin: 02/06/22 19:37 Dose: 1 mg Documented by: [id number] Lorazepam (Lorazepam 2 Mg/1 Ml Vial) 1 mg IV NOW STA Stop: 02/06/22 16:45 Last Admin: 02/06/22 17:33 Dose: 1 mg Documented by: [id number] Medical Decision Making Differential Diagnosis Postop complication, cauda equina, infection, lumbar disc disease, electrolyte or metabolic abnormality. Medical Records Attestation: I reviewed the patient's medical records. Home Medications Current Medication List: was personally reviewed by me Laboratory Data Attestation: I reviewed the patient's lab results. Result diagrams: 02/06/22 17:20 02/06/22 19:54 Lab Results 02/06/22 02/06/22 02/06/22 Range/Units 17:20 17:20 17:20 WBC 11.58 H (4.8-10.8) K/uL RBC 4.20 (4.2-5.4) M/uL Hgb 13.2 (12.0-16.0) g/dL Hct 38.6 (37-47) % MCV 91.9 (80-100) fL MCH 31.4 (25-34) pg MCHC 34.2 (32-36) g/dL RDW Std Deviation 46.9 H (36.4-46.3) fL RDW Coeff of Marybeth 14.0 (11.5-14.5) % Plt Count 331 (130-400) K/uL MPV 9.5 (7.4-10.4) fL Immature Gran % (Auto) 0.8 % Neut % (Auto) 71.7 % Lymph % (Auto) 18.4 % Davidson % (Auto) 7.6 % Eos % (Auto) 1.3 % Baso % (Auto) 0.2 % Neut # (Auto) 8.31 H (1.4-6.5) K/uL Lymph # (Auto) 2.13 (1.2-3.4) K/uL Davidson # (Auto) 0.88 H (0.11-0.59) K/uL Eos # (Auto) 0.15 (0-0.5) K/uL Baso # (Auto) 0.02 (0-0.2) K/uL Immature Gran # (Auto) 0.09 H (0.00-0.02) K/uL PT 10.2 (9.0-12.0) Seconds INR 1.0 (0.9-1.1) Sodium 136 (136-145) mmol/L Potassium (3.5-5.1) mmol/L Chloride 103 (98-107) mmol/L Carbon Dioxide 24 (21-32) mmol/L Anion Gap 9 (3-11) BUN 17 (6-23) mg/dl Creatinine 0.80 (0.6-1.2) mg/dl Est Cr Clr Drug Dosing Not Reportable Est GFR ( Amer) 94.9 ml/min Est GFR (Non-Af Amer) 81.8 ml/min BUN/Creatinine Ratio 21.3 H (10-20) Glucose 105 H (70-99(Fasting)) mg/dl Calcium 8.9 (8.5-10.1) mg/dl Total Bilirubin 0.3 (0.2-1.0) mg/dl AST (13-39) U/L ALT 24 (7-52) U/L Alkaline Phosphatase 106 H (34-104) U/L Troponin I < 0.03 (0-0.04) ng/ml Total Protein 6.6 (6.0-8.3) gm/dl Albumin 3.6 (3.4-5.0) gm/dl Globulin 3.0 (2.5-4.0) gm/dl Albumin/Globulin Ratio 1.2 (0.9-2) Lipase 49 (11-82) U/L SARS-CoV-2, RNA, NAAT (NEGATIVE) 02/06/22 02/06/22 Range/Units 17:40 19:54 WBC (4.8-10.8) K/uL RBC (4.2-5.4) M/uL Hgb (12.0-16.0) g/dL Hct (37-47) % MCV (80-100) fL MCH (25-34) pg MCHC (32-36) g/dL RDW Std Deviation (36.4-46.3) fL RDW Coeff of Marybeth (11.5-14.5) % Plt Count (130-400) K/uL MPV (7.4-10.4) fL Immature Gran % (Auto) % Neut % (Auto) % Lymph % (Auto) % Davidson % (Auto) % Eos % (Auto) % Baso % (Auto) % Neut # (Auto) (1.4-6.5) K/uL Lymph # (Auto) (1.2-3.4) K/uL Davidson # (Auto) (0.11-0.59) K/uL Eos # (Auto) (0-0.5) K/uL Baso # (Auto) (0-0.2) K/uL Immature Gran # (Auto) (0.00-0.02) K/uL PT (9.0-12.0) Seconds INR (0.9-1.1) Sodium (136-145) mmol/L Potassium (3.5-5.1) mmol/L Chloride (98-107) mmol/L Carbon Dioxide (21-32) mmol/L Anion Gap (3-11) BUN (6-23) mg/dl Creatinine (0.6-1.2) mg/dl Est Cr Clr Drug Dosing Est GFR ( Amer) ml/min Est GFR (Non-Af Amer) ml/min BUN/Creatinine Ratio (10-20) Glucose (70-99(Fasting)) mg/dl Calcium (8.5-10.1) mg/dl Total Bilirubin (0.2-1.0) mg/dl AST (13-39) U/L ALT (7-52) U/L Alkaline Phosphatase (34-104) U/L Troponin I (0-0.04) ng/ml Total Protein (6.0-8.3) gm/dl Albumin (3.4-5.0) gm/dl Globulin (2.5-4.0) gm/dl Albumin/Globulin Ratio (0.9-2) Lipase (11-82) U/L SARS-CoV-2, RNA, NAAT NEGATIVE (NEGATIVE) Imaging Data Radiologist's Impression: Lumbar Spine MRI 02/06/22 16:42 MRI OF THE LUMBAR SPINE WITHOUT IV CONTRAST CLINICAL HISTORY: Urinary and bowel incontinence. Recent back surgery. COMPARISON STUDY: MRI of the lumbar spine dated 01/27/2022. TECHNIQUE: MRI of the lumbar spine is performed utilizing various T1 and T2- weighted sequences in the axial and sagittal planes. IV contrast was not administered for this examination. The examination is significantly compromised by motion artifact. FINDINGS: Lumbar spine: Vertebral body height and alignment are maintained throughout the lumbar spine. There is postoperative change from laminectomy and posterior fusion at L4-L5. Interpedicular screws are present at both levels. Tiny anterior and lateral marginal osteophytes are seen throughout. Normal marrow signal intensity is maintained throughout the visualized bony structures. The transverse processes are intact as visualized. Vertebral discs: There has been discectomy at L4-L5. Disc desiccation and minimal loss of height is seen at the remaining lumbar levels. Spinal cord: The visualized spinal cord is normal in morphology and signal intensity. The conus medullaris terminates at the level of L1. The nerve roots of the cauda equina are normal in morphology. L1-L2: Unremarkable. L2-L3: There is minimal disc bulge which abuts the transiting left nerve root. The central canal is clear. There is left lateral disc bulge seen on axial image #10. This abuts the exiting left L2 nerve root. There is only mild left-sided neural foraminal stenosis. L3-L4: There is minimal posterior disc bulge. The central canal and neural foramina are patent. L4-L5: Minimal disc bulge is noted. There is a postoperative fluid collection seen posteriorly on the right at the laminectomy level. This is best seen on axial image #23 and measures 3.1 x 2.6 x 1.7 cm. This collection significantly effaces the right posterior aspect of the thecal sac and impinges on the transiting right-sided nerve roots. This is likely extradural in location. The neural foramina appear clear. L5-S1: There is minimal posterior disc bulge. The central canal is clear. There is mild bilateral subarticular stenosis. In conjunction with facet arthropathy there is mild bilateral neural foraminal narrowing. Sacrum: The visualized sacrum is normal in morphology and signal intensity. Soft tissues: Postoperative change and edema seen within the posterior paraspinous soft tissues at the operative level. As noted above there is a postoperative fluid collection at the site of the right laminectomy defect at L4-L5. There is no additional fluid collection within the subcutaneous soft tissues at L3-L4 as seen on axial image #14. This measures 3.8 x 1.4 x 3.1 cm and likely represents a seroma. Trace fluid is also seen around the spinous process of L5. The psoas muscles are normal in appearance. The retroperitoneal structures are grossly unremarkable but incompletely evaluated. IMPRESSION: 1. There is postoperative change from laminectomy and posterior fusion at L4-L5 as above. 2. There is a 3.1 x 2.6 x 1.7 cm postoperative fluid collection posterior to the thecal sac on the right at L4-L5. This causes mass effect on the thecal sac, which is significantly effaced posteriorly on the right with impingement on the transiting nerve roots. This collection has increased in size as compared to the 01/27/2022 examination. This is likely extradural in location and likely represents a seroma or hematoma. The sterility of this fluid cannot be evaluated by imaging. Surgical evaluation is advised. 3. There is an additional fluid collection within the subcutaneous soft tissues at L3-L4. This also likely represents a seroma/hematoma. Again, the sterility cannot be assessed by imaging. 4. No destructive bony process is identified. Dictated: 02/06/2022 6:34 PM Transcribed: 02/06/2022 7:17 PM Shayna [id number] [facility] Electronically signed by: Chase Eller M.D. 02/06/2022 7:25 PM [facility] Narrative Patient comes in as described above. She was placed in room C 10. she is having ongoing issues with her back she has loss of bowel and bladder function she tells me is actually going on for 7 to 10 days she thinks is gotten worse. She does have pain rating down her right leg with some subjective numbness in the leg may be some weakness and some numbness in her buttocks as well. I did look through her chart she is did not have an MRI of her lumbar spine while she was here and I did order lumbar spine MRI as well as multiple blood testing she asked for some of her pain was given IV Dilaudid which she is done well with before. She also asked for something prior to MRI and I ordered Ativan. I did also page Dr. Beckman. She has no fever or white count to suggest infection. She has no acute electrolyte or metabolic abnormalities. Dr. Beckman did call back and agrees with the MRI. The MRI came back and showed a fluid collection with some impingement on the thecal sac. He was lab tested negative for COVID. Dr. Beckman does want to take her back to the operating room as he was concerned that she is developing cauda equina syndrome. Patient did require additional IV Dilaudid for pain and will be admitted to Dr. Beckman service with plans to take her to the operating room from the ER Impression & Plan Cauda equina syndrome, Back pain, Seroma after procedure, Lab test negative for COVID-19 virus Discharge Plan Visit Data Chief Complaint: Back Injury/Pain Stated Complaint: SURG COMPLICATIONS, INCONTINENCE, BACK/LEG PAIN ED Provider: Luisito Charles Discharge Problem: Cauda equina syndrome, Back pain, Seroma after procedure, Lab test negative for COVID-19 virus Patient Disposition: Admitted As Inpatient Discharge Instructions Interventions: ED Discharge Assessment Last Done: 02/06/22 21:03
[2022-02-06 17:47] LABS: Basophils # (auto) 0.02 K/uL (0-0.2); Basophils % (auto) 0.2 %; Eosinophils # (auto) 0.15 K/uL (0-0.5); Eosinophils % (auto) 1.3 %; Hematocrit (blood only) 38.6 % (37-47); Hemoglobin 13.2 g/dL (12.0-16.0); Immature Granulocytes # (auto) 0.09 K/uL (0.00-0.02); Immature Granulocytes % (auto) 0.8 %; Lymphocytes # (auto) 2.13 K/uL (1.2-3.4); Lymphocytes % (auto) 18.4 %; Mean Corpuscular Hemoglobin 31.4 pg (25-34); Mean Corpuscular Hgb Conc 34.2 g/dL (32-36); Mean Corpuscular Volume 91.9 fL (80-100); Mean Platelet Volume 9.5 fL (7.4-10.4); Monocytes # (auto) 0.88 K/uL (0.11-0.59); Monocytes % (auto) 7.6 %; Neutrophils # (auto) 8.31 K/uL (1.4-6.5); Neutrophils % (auto) 71.7 %; Platelet Count 331 K/uL (130-400); RDW Standard Deviation 46.9 fL (36.4-46.3); White Blood Count 11.58 K/uL (4.8-10.8)
[2022-02-06 17:53] LABS: Prothrombin Time 10.2 Seconds (9.0-12.0)
[2022-02-06 18:09] LABS: Troponin I < 0.03 ng/ml (0-0.04)
[2022-02-06 19:05] LABS: Alanine Aminotransferase 24 U/L (7-52); Albumin Globulin Ratio 1.2 (0.9-2); Albumin Level 3.6 gm/dl (3.4-5.0); Alkaline Phosphatase 106 U/L (34-104); Anion Gap 9 (3-11); BUN Creatinine Ratio 21.3 (10-20); Bilirubin,Total 0.3 mg/dl (0.2-1.0); Blood Urea Nitrogen 17 mg/dl (6-23); Calcium 8.9 mg/dl (8.5-10.1); Carbon Dioxide 24 mmol/L (21-32); Chloride 103 mmol/L (98-107); Est GFR (African American) 94.9 ml/min; Est GFR (Non-African American) 81.8 ml/min; Glucose 105 mg/dl (70-99(Fasting)); Lipase 49 U/L (11-82); Sodium 136 mmol/L (136-145); Total Protein 6.6 gm/dl (6.0-8.3)
--- NOTE | 2022-02-06 19:27 | Magnetic Resonance Report ---
MRI OF THE LUMBAR SPINE WITHOUT IV CONTRAST CLINICAL HISTORY: Urinary and bowel incontinence. Recent back surgery. COMPARISON STUDY: MRI of the lumbar spine dated 01/27/2022. TECHNIQUE: MRI of the lumbar spine is performed utilizing various T1 and T2-weighted sequences in the axial and sagittal planes. IV contrast was not administered for this examination. The examination is significantly compromised by motion artifact. FINDINGS: Lumbar spine: Vertebral body height and alignment are maintained throughout the lumbar spine. There i s postoperative change from laminectomy and posterior fusion at L4-L5. Interpedicular screws are pres ent at both levels. Tiny anterior and lateral marginal osteophytes are seen throughout. Normal marrow signal intensity is maintained throughout the visualized bony structures. The transverse processes a re intact as visualized. Vertebral discs: There has been discectomy at L4-L5. Disc desiccation and minimal loss of height is s een at the remaining lumbar levels. Spinal cord: The visualized spinal cord is normal in morphology and signal intensity. The conus medul yesi terminates at the level of L1. The nerve roots of the cauda equina are normal in morphology. L1-L2: Unremarkable. L2-L3: There is minimal disc bulge which abuts the transiting left nerve root. The central canal is c lear. There is left lateral disc bulge seen on axial image #10. This abuts the exiting left L2 nerve root. There is only mild left-sided neural foraminal stenosis. L3-L4: There is minimal posterior disc bulge. The central canal and neural foramina are patent. L4-L5: Minimal disc bulge is noted. There is a postoperative fluid collection seen posteriorly on the right at the laminectomy level. This is best seen on axial image #23 and measures 3.1 x 2.6 x 1.7 cm . This collection significantly effaces the right posterior aspect of the thecal sac and impinges on the transiting right-sided nerve roots. This is likely extradural in location. The neural foramina ap pear clear. L5-S1: There is minimal posterior disc bulge. The central canal is clear. There is mild bilateral sub articular stenosis. In conjunction with facet arthropathy there is mild bilateral neural foraminal na rrowing. Sacrum: The visualized sacrum is normal in morphology and signal intensity. Soft tissues: Postoperative change and edema seen within the posterior paraspinous soft tissues at th e operative level. As noted above there is a postoperative fluid collection at the site of the right laminectomy defect at L4-L5. There is no additional fluid collection within the subcutaneous soft tis sues at L3-L4 as seen on axial image #14. This measures 3.8 x 1.4 x 3.1 cm and likely represents a se raissa. Trace fluid is also seen around the spinous process of L5. The psoas muscles are normal in appe arance. The retroperitoneal structures are grossly unremarkable but incompletely evaluated. IMPRESSION: 1. There is postoperative change from laminectomy and posterior fusion at L4-L5 as above. 2. There is a 3.1 x 2.6 x 1.7 cm postoperative fluid collection posterior to the thecal sac on the ri ght at L4-L5. This causes mass effect on the thecal sac, which is significantly effaced posteriorly o n the right with impingement on the transiting nerve roots. This collection has increased in size as compared to the 01/27/2022 examination. This is likely extradural in location and likely represents a seroma or hematoma. The sterility of this fluid cannot be evaluated by imaging. Surgical evaluation i s advised. 3. There is an additional fluid collection within the subcutaneous soft tissues at L3-L4. This also l ikely represents a seroma/hematoma. Again, the sterility cannot be assessed by imaging. 4. No destructive bony process is identified. Dictated: 02/06/2022 6:34 PM Transcribed: 02/06/2022 7:17 PM Shayna [id number] [facility] Electronically signed by: Chase Eller M.D. 02/06/2022 7:25 PM
[2022-02-06] MEDS ORDERED: BUPIVACAINE 0.5 % 5 MG/1 ML MPF 30ML VIAL ONE (20:19)
[2022-02-06] MEDS ORDERED: EPINEPHrine INJ 1 MG/ML AMP ONE (20:19)
--- NOTE | 2022-02-06 20:27 | History & Physical Report ---
Date of Service February 06, 2022 Assessment & Plan (1) Seroma after procedure: Plan: MRI lumbar spine performed this evening demonstrates reaccumulation of fluid in the operative bed. There is significant thecal encroachment. In light of her presentation and evidence of cauda equina syndrome recommending emergent irrigation debridement lumbar spine. History of Present Illness Chief Complaint: Worsening back pain with right leg weakness and changes in bowel bladder function Primary Care Provider: Dilan Tucker MD This is a 56-year-old female known to me that presents with marked decline in status over the past day. She is noting loss of bowel bladder control worsening of right leg symptoms and right leg numbness including the perineal area. She is status post I&D a week ago was discharged earlier this week having completed physical therapy and able to ascend and descend steps. She is walking comfortably often without a walker. Allergies Allergy/AdvReac Type Severity Reaction Status Date / Time No Known Allergies Allergy Verified 01/28/22 16:20 Home Medications Medication Instructions Recorded Confirmed Type escitalopram oxalate 20 mg tablet 20 mg PO QAM 01/15/22 01/28/22 History (Lexapro) estradiol 1 mg tablet 1 mg PO QAM 01/15/22 01/28/22 History ondansetron HCl 4 mg tablet 4 mg PO Q6H PRN 01/15/22 01/28/22 History trazodone 100 mg tablet 200 mg PO HS 01/15/22 01/28/22 History oxycodone 5 mg tablet 5 mg PO Q6H PRN #30 tab 01/23/22 01/28/22 Rx tramadol 50 mg tablet 50 mg PO Q6H PRN #30 tab 01/23/22 01/28/22 Rx hydroxyzine HCl 25 mg tablet 25 mg PO Q6 PRN #30 tab 02/04/22 Rx tramadol 50 mg tablet 50 mg PO Q6H PRN #30 tab 02/04/22 Rx Past Med/Surg History Medical History Anxiety Cancer MELANOMA LEFT ARM/BACK-EXCISED Chronic back pain TO RIGHT LEG Depression Eating disorder ANOREXIA, BULIMIA-UNDER CONTROL CURRENTLY Esophagitis UNDER CONTROL Gastroparesis GERD (gastroesophageal reflux disease) UNDER CONTROL H/O Randi-Chicas syndrome Hiatal hernia History of unintended awareness under general anesthesia during a colonoscopy per PAT RN call with pt Temporomandibular joint disorder CLICKS-NO LOCKING Surgical History History of abdominoplasty History of appendectomy History of back surgery History of bladder surgery SLING History of cholecystectomy History of colonoscopy 2020 History of esophagogastroduodenoscopy (EGD) History of hysterectomy TOTAL Nausea and vomiting after administration of anesthetic agent Family History Father Family history of diabetes mellitus Grandmother (Maternal) Family hx of colon cancer Grandfather (Maternal) Family hx of colon cancer Social History Smoking Status: Never smoker Second Hand Exposure: Yes (AUNTS SMOKE); Hx Alcohol Use: No Hx Substance Use: No Preferred Language: Latvian Communication Ability: Effective Culturist Required: No Beliefs That Will Affect Care: None Current Living Situation: Family Current Living Situation Comment: [address] YR OLD [facility] LIVES WITH PT current occupational status: retired Feels Safe at Home: Yes Assistive Devices: Walker Physical Exam Physical Exam: Patient is in obvious distress. Significant strength deficits to testing the right plantar flexion dorsiflexion quadriceps. Sensory is diminished. Results & Data ([facility]) Vital Signs (Past 12 Hours) Vital Signs Temp Pulse Resp BP Pulse Ox 02/06/22 15:43 36.6 C 122 H 20 118/73 94
--- NOTE | 2022-02-06 20:27 | Anesthesiology Consultation ---
Date of Service February 06, 2022 Assessment & Plan (1) Encounter for pre-operative examination: Chart Review Chart Review: Acceptable Risk for Surgery (necessary surgery) and Patient NOT seen in Pre Admission Testing Consults Requested none History Surgery Operation Date: 02/06/22 20:30 Proposed Procedures p Incision and Drainage Lumbar(Not Applicable) - Dl Beckman DO Height/Weight Height: 5 ft 3 in Weight: 67 kg Allergies Allergy/AdvReac Type Severity Reaction Status Date / Time No Known Allergies Allergy Verified 01/28/22 16:20 Medications Home Medications Medication Instructions Recorded Confirmed Last Taken escitalopram oxalate 20 mg tablet 20 mg PO QAM 01/15/22 01/28/22 01/28/22 (Lexapro) estradiol 1 mg tablet 1 mg PO QAM 01/15/22 01/28/22 01/28/22 ondansetron HCl 4 mg tablet 4 mg PO Q6H PRN 01/15/22 01/28/22 01/22/22 04:45 trazodone 100 mg tablet 200 mg PO HS 01/15/22 01/28/22 01/27/22 oxycodone 5 mg tablet 5 mg PO Q6H PRN #30 tab 01/23/22 01/28/22 Unknown tramadol 50 mg tablet 50 mg PO Q6H PRN #30 tab 01/23/22 01/28/22 Unknown hydroxyzine HCl 25 mg tablet 25 mg PO Q6 PRN #30 tab 02/04/22 Unknown tramadol 50 mg tablet 50 mg PO Q6H PRN #30 tab 02/04/22 Unknown Past Medical History Medical History Anxiety Cancer MELANOMA LEFT ARM/BACK-EXCISED Chronic back pain TO RIGHT LEG Depression Eating disorder ANOREXIA, BULIMIA-UNDER CONTROL CURRENTLY Esophagitis UNDER CONTROL Gastroparesis GERD (gastroesophageal reflux disease) UNDER CONTROL H/O Randi-Chicas syndrome Hiatal hernia History of unintended awareness under general anesthesia during a colonoscopy per PAT RN call with pt Temporomandibular joint disorder CLICKS-NO LOCKING Past Family History Family History Father Family history of diabetes mellitus Grandmother (Maternal) Family hx of colon cancer Grandfather (Maternal) Family hx of colon cancer Past Surgical History Surgical History History of abdominoplasty History of appendectomy History of back surgery History of bladder surgery SLING History of cholecystectomy History of colonoscopy 2020 History of esophagogastroduodenoscopy (EGD) History of hysterectomy TOTAL Nausea and vomiting after administration of anesthetic agent Social History Smoking Status: Never smoker Hx Alcohol Use: No Hx Substance Use: No Physical Exam Vital Signs Last Vital Signs Temp 36.6 C 02/06/22 15:43 Pulse 122 H 02/06/22 15:43 Resp 20 02/06/22 15:43 BP 118/73 02/06/22 15:43 Pulse Ox 94 02/06/22 15:43 Testing Laboratory Results 02/06/22 17:20 PT 10.2 Seconds (9.0-12.0) 02/06/22 17:20 INR 1.0 (0.9-1.1) 02/06/22 17:20 Electrocardiogram Date: 01/23/22 Findings: + NSR @ (11)
[2022-02-06] MEDS ORDERED: ATROPINE SULFATE 0.1 MG/ML 10ML SYR IV PRN ×2 (20:28→22:15)
[2022-02-06] MEDS ORDERED: LABETALOL HCL IV 5 MG/ML 20ML IV PRN (20:28)
[2022-02-06] MEDS ORDERED: ONDANSETRON INJ 2 MG/ML 2 ML VIAL IV PRN ×2 (20:28→22:15)
[2022-02-06] MEDS ORDERED: ePHEDrine sulfate 50 MG/ML AMP IV PRN ×2 (20:28→22:15)
[2022-02-06] MEDS ORDERED: PHENYLEPHRINE 100MCG/ML 5ML SYR IV PRN (20:28)
[2022-02-06] MEDS ORDERED: HYDROmorphone INJ 1 MG/ML SYRINGE IV PRN (20:28)
[2022-02-06] MEDS ORDERED: MEPERIDINE HCL 25 MG/ML CARP/VIAL IV PRN (20:28)
[2022-02-06] MEDS ORDERED: MIDAZOLAM HCL 1 MG/ML 2ML VIAL ONE (20:34)
[2022-02-06] MEDS ORDERED: fentaNYL citrate 100 MCG/2 ML VIAL ONE ×2 (20:34→22:20)
[2022-02-06] MEDS ORDERED: PROPOFOL IV EMULSION 10 MG/ML 20 ML VIAL IV ONE (20:43)
[2022-02-06] MEDS ORDERED: ceFAZolin 330 MG/ML 1 GM VIAL ONE (20:55)
[2022-02-06] MEDS ORDERED: ceFAZolin 2,000 MG/15 ML IV PUSH IV ONE (20:56)
[2022-02-06] MEDS ORDERED: SUGAMMADEX SODIUM 200 MG/2 ML VIAL IV ONE (21:17)
[2022-02-06] MEDS ORDERED: SUCCINYLCHOLINE CHLORIDE 20 MG/ML 10 ML VIAL IV ONE (21:20)
[2022-02-06] MEDS ORDERED: ONDANSETRON INJ 2 MG/ML 2 ML VIAL ONE (21:20)
[2022-02-06] MEDS ORDERED: DEXAMETHASONE SOD INJ 4 MG/ML VIAL ONE (21:20)
[2022-02-06] MEDS ORDERED: ROCURONIUM BROMIDE 10 MG/ML 5 ML VIAL IV ONE (21:20)
[2022-02-06] MEDS ORDERED: LIDOCAINE 2% 2 ML VIAL/AMP(20MG/ML) INFIL ONE (21:21)
--- NOTE | 2022-02-06 21:47 | Operative Report ---
Post Operative Report Pre & Post Diagnosis Operation Date: 02/06/22 20:30 Pre-Op Diagnosis: Lumbar seroma; caudia equina Post-Op Diagnosis: Lumbar seroma; caudia equina I identified the patient and participated in the time-out.: Yes Procedure Operation Date: 02/06/22 20:30 Actual Procedures p Irrigation and Drainage Lumbar Spine(Not Applicable) - Dl Beckman DO Surgeon Dl Beckman DO Digital Account Director None Estimated Blood Loss 10 Findings Consistent with Post-Op Diagnosis Specimens None Indications This is a 56-year-old female presents this evening with marked decline in status with evidence of developing cauda equina syndrome. MRI demonstrates significant seroma and she went for emergent I&D. Description of Procedure Patient was met with identified informed consent obtained. Patient was then taken to the operative suite underwent ablation placed in a prone position the Trevon table atop the Nolberto frame. All bony prominences well-padded eyes inspected to ensure no external pressure placed upon the. This point lumbar spine was prepped and draped in a sterile fashion. Utilizing the previous incision site sharp dissection was performed down to and exposing the fascia. The fascia was then released and evidence of a seroma noted. It was removed in its entirety. 3 L of antibiotic saline were then irrigated. 15 round SEBASTIAN drain inserted. The incision was then closed with 1 Vicryl fascia 2-0 Vicryl subcutaneously and 4 Monocryl for final skin closure. Steri-Strips dressings placed. Patient waken taken PACU stable condition. I attest to the content of the Intraoperative Record and any orders documented therein. Any exceptions are noted below.
[2022-02-06] MEDS ORDERED: fentaNYL citrate 100 MCG/2 ML VIAL IV PRN (22:15)
[2022-02-06] MEDS: fentaNYL citrate 100 MCG/2 ML VIAL IV PRN ×4 (22:20→22:35)
--- NOTE | 2022-02-06 22:24 | Anesthesiology Progress Note ---
Date of Service February 06, 2022 Anesthesia Post Procedure Vital Signs Vital Signs: Temp Pulse Pulse Resp BP BP Pulse Ox 02/06/22 22:11 36.1 C L 92 H 18 134/95 100 02/06/22 15:43 36.6 C 122 H 20 118/73 94 Transfer of Care Handoff Completed per policy Notes Mental Status: alert / awake / arousable and participated in evaluation Patient Amnestic to Procedure: Yes Nausea / Vomiting: adequately controlled Pain: adequately controlled Airway Patency, RR, SpO2: stable & adequate BP & HR: stable & adequate Hydration State: stable & adequate Anesthetic Complications: no major complications apparent and Pt Satisfied with anesthetic care
[2022-02-06] MEDS ORDERED: LACTATED RINGER'S 1,000 ML IV SCH (23:03)
[2022-02-06] MEDS ORDERED: FAMOTIDINE 20 MG TAB PO PRN (23:03)
[2022-02-06] MEDS ORDERED: bisacodyL 10 MG SUPP PR PRN (23:03)
[2022-02-06] MEDS ORDERED: hydrOXYzine HCl 25 MG TAB PO PRN (23:03)
[2022-02-06] MEDS ORDERED: METOCLOPRAMIDE HCL INJ 5 MG/ML 2 ML VIAL IV PRN (23:03)
[2022-02-06] MEDS ORDERED: PROMETHAZINE HCL 12.5 MG in SODIUM CHLORIDE 0.9% 50 ML IV PRN (23:03)
[2022-02-06] MEDS ORDERED: HYDROmorphone INJ 0.5 MG/0.5 ML SYR IV PRN (23:03)
[2022-02-06] MEDS ORDERED: NALOXONE HCL 0.4 MG/1 ML VIAL/CARP IV PRN (23:03)
[2022-02-06] MEDS ORDERED: diphenhydrAMINE Capsule 25 MG CAP PO PRN (23:03)
[2022-02-06] MEDS ORDERED: ALUMINUM/MAGNESIUM SUSP 30 ML UDC PO PRN (23:03)
[2022-02-06] MEDS ORDERED: MAGNESIUM HYDROXIDE SUSP 30 ML UDC PO PRN (23:03)
[2022-02-06] MEDS ORDERED: DO NOT ADMINISTER FLU VACCINE PRN (23:03)
[2022-02-06] MEDS ORDERED: SOD PHOSPHATE/SOD BIPHOSPHATE ENEMA 132 ML BTL PR PRN (23:03)
[2022-02-06] MEDS ORDERED: DO NOT ADMINISTER PNEUMOCOCCAL VACCINE PRN (23:03)
--- NOTE | 2022-02-06 23:20 | Hospitalist Consultation ---
Date of Consultation February 06, 2022 Assessment & Plan (1) Cauda equina syndrome: Final Assessment and Recommendations as follows : Cauda equina syndrome/postop seroma status post surgery hx L SS status post surgery anxiety/mood disorder, suboptimal eating disorder as per records GERD/gastroparesis. Stable on regimen Hyperglycemia rule out DM Postop management as per orthopedics. Inpatient psychiatry consult/follow-up visit for patient's suboptimal anxiety/depression as per patient's request. Check hemoglobin A1c DVT prophylaxis SCDs as per postop orders Thank you very much for this consultation. Dr. Viramontes will follow patient's progress. Text document was generated using [employer] voice recognition software. It may contain grammatical or spelling errors. Kindly contact undersigned for clarification of any documentation item in question. History of Present Illness Reason for Consultation: Medical management Requesting Physician: Dr. Beckman Attending Physician: Dl Beckman, History of Present Illness PCP : Dr. Tucker from [facility] History obtained from patient and records. Medical history significant for L SS status post surgery, anxiety/mood disorder, eating disorder as per records, GERD/gastroparesis. Malignant melanoma status post surgery 2 confinements under orthopedic spine service last month. Patient underwent lumbar decompression surgery for L SS last January 23, 2022. Patient discharged home 3 days later. Patient readmitted from January 29 to February 04, 2022 for worsening back pain with RLE numbness/weakness with some bowel/bladder incontinence. Patient underwent debridement procedure for epidural seroma. Patient also evaluated by psychiatry during confinement for anxiety and home issues. Persistent right leg weakness and incontinence symptoms at home with low-grade fever. Patient consulted ER today. Subsequent irrigation and drainage procedure done for lumbar seroma and cauda equina. Patient complaining of back pain right now and unchanged right leg weakness. Denies chest pain/S OB. Anxiety and mood not the best as per patient. Patient denies suicidality. Medical History as above Surgical History : Back surgeries, BTL, lumpectomy, cholecystectomy, HETAL, appendectomy, carpal tunnel release, abdominoplasty, melanoma surgery Family History : DM, colon cancer Personal/Social history : Non-smoker, no EtOH intake, disabled Allergies Allergy/AdvReac Type Severity Reaction Status Date / Time No Known Allergies Allergy Verified 01/28/22 16:20 Home Medications Medication Instructions Recorded Confirmed Type escitalopram oxalate 20 mg tablet 20 mg PO QAM 01/15/22 01/28/22 History (Lexapro) estradiol 1 mg tablet 1 mg PO QAM 01/15/22 01/28/22 History ondansetron HCl 4 mg tablet 4 mg PO Q6H PRN 01/15/22 01/28/22 History trazodone 100 mg tablet 200 mg PO HS 01/15/22 01/28/22 History oxycodone 5 mg tablet 5 mg PO Q6H PRN #30 tab 01/23/22 01/28/22 Rx tramadol 50 mg tablet 50 mg PO Q6H PRN #30 tab 01/23/22 01/28/22 Rx hydroxyzine HCl 25 mg tablet 25 mg PO Q6 PRN #30 tab 02/04/22 Rx tramadol 50 mg tablet 50 mg PO Q6H PRN #30 tab 02/04/22 Rx Patient History Medical History Anxiety Cancer MELANOMA LEFT ARM/BACK-EXCISED Chronic back pain TO RIGHT LEG Depression Eating disorder ANOREXIA, BULIMIA-UNDER CONTROL CURRENTLY Esophagitis UNDER CONTROL Gastroparesis GERD (gastroesophageal reflux disease) UNDER CONTROL H/O Randi-Chicas syndrome Hiatal hernia History of unintended awareness under general anesthesia during a colonoscopy per PAT RN call with pt Temporomandibular joint disorder CLICKS-NO LOCKING Surgical History History of abdominoplasty History of appendectomy History of back surgery History of bladder surgery SLING History of cholecystectomy History of colonoscopy 2020 History of esophagogastroduodenoscopy (EGD) History of hysterectomy TOTAL Nausea and vomiting after administration of anesthetic agent Family History Father Family history of diabetes mellitus Grandmother (Maternal) Family hx of colon cancer Grandfather (Maternal) Family hx of colon cancer Social History Smoking Status: Never smoker Second Hand Exposure: No; Do You Dip or Chew Tobacco: No; Tobacco Cessation Education Requested by Patient: No Hx Alcohol Use: No Hx Substance Use: No Preferred Language: Togolese Communication Ability: Effective Dietitian Teacher Required: No Beliefs That Will Affect Care: None Current Living Situation: Family Current Living Situation Comment: 10 YR OLD [facility]AND[facility] LIVES WITH PT current occupational status: retired Other Information That Helps Us Care for You: No Feels Safe at Home: Yes Safety Concerns: Feels Safe At This Time Assistive Devices: None Review of Systems Review of Systems: As per HPI, all 10 systems reviewed, all other ROS negative Physical Exam Physical Exam: GENERAL: uncomfortable, slightly anxious and irate, no respiratory distress SKIN: Normal color, warm HEENT: [place] palpebral conjunctivae, no ptosis, dry buccal mucosa NECK : Supple, no tenderness CHEST : Decreased breath sounds, no tenderness HEART : RRR, no obvious murmurs ABDOMEN: Some distention, nontender EXTREMITIES : No LE swelling/tenderness, no other conspicuous deformities noted NEUROLOGIC : Coherent, no facial asymmetry, gait and stance not assessed Results & Data Results & Data ([facility]) Vital Signs (Past 12 Hours) Vital Signs Temp Pulse Pulse Resp BP BP Pulse Ox 02/06/22 22:50 36.2 C L 87 13 126/74 95 02/06/22 22:40 83 14 119/76 93 02/06/22 22:30 94 H 15 118/82 94 02/06/22 22:20 93 H 19 121/86 99 02/06/22 22:11 36.1 C L 92 H 18 134/95 100 02/06/22 15:43 36.6 C 122 H 20 118/73 94 Laboratory Results Laboratory Results WBC 11.58 K/uL (4.8-10.8) H 02/06/22 17:20 RBC 4.20 M/uL (4.2-5.4) 02/06/22 17:20 Hgb 13.2 g/dL (12.0-16.0) 02/06/22 17:20 Hct 38.6 % (37-47) 02/06/22 17:20 MCV 91.9 fL (80-100) 02/06/22 17:20 MCH 31.4 pg (25-34) 02/06/22 17:20 MCHC 34.2 g/dL (32-36) 02/06/22 17:20 RDW Std Deviation 46.9 fL (36.4-46.3) H 02/06/22 17:20 RDW Coeff of Marybeth 14.0 % (11.5-14.5) 02/06/22 17:20 Plt Count 331 K/uL (130-400) 02/06/22 17:20 MPV 9.5 fL (7.4-10.4) 02/06/22 17:20 Immature Gran % (Auto) 0.8 % 02/06/22 17:20 Neut % (Auto) 71.7 % 02/06/22 17:20 Lymph % (Auto) 18.4 % 02/06/22 17:20 [place] % (Auto) 7.6 % 02/06/22 17:20 Eos % (Auto) 1.3 % 02/06/22 17:20 Baso % (Auto) 0.2 % 02/06/22 17:20 Neut # (Auto) 8.31 K/uL (1.4-6.5) H 02/06/22 17:20 Lymph # (Auto) 2.13 K/uL (1.2-3.4) 02/06/22 17:20 [place] # (Auto) 0.88 K/uL (0.11-0.59) H 02/06/22 17:20 Eos # (Auto) 0.15 K/uL (0-0.5) 02/06/22 17:20 Baso # (Auto) 0.02 K/uL (0-0.2) 02/06/22 17:20 Immature Gran # (Auto) 0.09 K/uL (0.00-0.02) H 02/06/22 17:20 PT 10.2 Seconds (9.0-12.0) 02/06/22 17:20 INR 1.0 (0.9-1.1) 02/06/22 17:20 Sodium 136 mmol/L (136-145) 02/06/22 17:20 Potassium mmol/L (3.5-5.1) 02/06/22 19:54 Chloride 103 mmol/L (98-107) 02/06/22 17:20 Carbon Dioxide 24 mmol/L (21-32) 02/06/22 17:20 Anion Gap 9 (3-11) 02/06/22 17:20 BUN 17 mg/dl (6-23) 02/06/22 17:20 Creatinine 0.80 mg/dl (0.6-1.2) 02/06/22 17:20 Est Cr Clr Drug Dosing Not Reportable 02/06/22 17:20 Est GFR ( Amer) 94.9 ml/min 02/06/22 17:20 Est GFR (Non-Af Amer) 81.8 ml/min 02/06/22 17:20 BUN/Creatinine Ratio 21.3 (10-20) H 02/06/22 17:20 Glucose 105 mg/dl (70-99(Fasting)) H 02/06/22 17:20 Calcium 8.9 mg/dl (8.5-10.1) 02/06/22 17:20 Total Bilirubin 0.3 mg/dl (0.2-1.0) 02/06/22 17:20 AST U/L (13-39) 02/06/22 19:54 ALT 24 U/L (7-52) 02/06/22 17:20 Alkaline Phosphatase 106 U/L (34-104) H 02/06/22 17:20 Troponin I < 0.03 ng/ml (0-0.04) 02/06/22 17:20 Total Protein 6.6 gm/dl (6.0-8.3) 02/06/22 17:20 Albumin 3.6 gm/dl (3.4-5.0) 02/06/22 17:20 Globulin 3.0 gm/dl (2.5-4.0) 02/06/22 17:20 Albumin/Globulin Ratio 1.2 (0.9-2) 02/06/22 17:20 Lipase 49 U/L (11-82) 02/06/22 17:20 SARS-CoV-2, RNA, NAAT NEGATIVE (NEGATIVE) 02/06/22 17:40 Impressions Lumbar Spine MRI 02/06/22 16:42 MRI OF THE LUMBAR SPINE WITHOUT IV CONTRAST CLINICAL HISTORY: Urinary and bowel incontinence. Recent back surgery. COMPARISON STUDY: MRI of the lumbar spine dated 01/27/2022. TECHNIQUE: MRI of the lumbar spine is performed utilizing various T1 and T2- weighted sequences in the axial and sagittal planes. IV contrast was not administered for this examination. The examination is significantly compromised by motion artifact. FINDINGS: Lumbar spine: Vertebral body height and alignment are maintained throughout the lumbar spine. There is postoperative change from laminectomy and posterior fusion at L4-L5. Interpedicular screws are present at both levels. Tiny anterior and lateral marginal osteophytes are seen throughout. Normal marrow signal intensity is maintained throughout the visualized bony structures. The transverse processes are intact as visualized. Vertebral discs: There has been discectomy at L4-L5. Disc desiccation and minimal loss of height is seen at the remaining lumbar levels. Spinal cord: The visualized spinal cord is normal in morphology and signal intensity. The conus medullaris terminates at the level of L1. The nerve roots of the cauda equina are normal in morphology. L1-L2: Unremarkable. L2-L3: There is minimal disc bulge which abuts the transiting left nerve root. The central canal is clear. There is left lateral disc bulge seen on axial image #10. This abuts the exiting left L2 nerve root. There is only mild left-sided neural foraminal stenosis. L3-L4: There is minimal posterior disc bulge. The central canal and neural foramina are patent. L4-L5: Minimal disc bulge is noted. There is a postoperative fluid collection seen posteriorly on the right at the laminectomy level. This is best seen on axial image #23 and measures 3.1 x 2.6 x 1.7 cm. This collection significantly effaces the right posterior aspect of the thecal sac and impinges on the transiting right-sided nerve roots. This is likely extradural in location. The neural foramina appear clear. L5-S1: There is minimal posterior disc bulge. The central canal is clear. There is mild bilateral subarticular stenosis. In conjunction with facet arthropathy there is mild bilateral neural foraminal narrowing. Sacrum: The visualized sacrum is normal in morphology and signal intensity. Soft tissues: Postoperative change and edema seen within the posterior paraspinous soft tissues at the operative level. As noted above there is a postoperative fluid collection at the site of the right laminectomy defect at L4-L5. There is no additional fluid collection within the subcutaneous soft tissues at L3-L4 as seen on axial image #14. This measures 3.8 x 1.4 x 3.1 cm and likely represents a seroma. Trace fluid is also seen around the spinous process of L5. The psoas muscles are normal in appearance. The retroperitoneal structures are grossly unremarkable but incompletely evaluated. IMPRESSION: 1. There is postoperative change from laminectomy and posterior fusion at L4-L5 as above. 2. There is a 3.1 x 2.6 x 1.7 cm postoperative fluid collection posterior to the thecal sac on the right at L4-L5. This causes mass effect on the thecal sac, which is significantly effaced posteriorly on the right with impingement on the transiting nerve roots. This collection has increased in size as compared to the 01/27/2022 examination. This is likely extradural in location and likely represents a seroma or hematoma. The sterility of this fluid cannot be evaluated by imaging. Surgical evaluation is advised. 3. There is an additional fluid collection within the subcutaneous soft tissues at L3-L4. This also likely represents a seroma/hematoma. Again, the sterility cannot be assessed by imaging. 4. No destructive bony process is identified. Dictated: 02/06/2022 6:34 PM Transcribed: 02/06/2022 7:17 PM Shayna [id number] [facility] Electronically signed by: Chase Eller M.D. 02/06/2022 7:25 PM
[2022-02-06 23:49] LABS: Potassium 3.9 mmol/L (3.5-5.1)
[2022-02-07] MEDS: HYDROmorphone INJ 1 MG/ML SYRINGE IV PRN ×3 (00:06→09:53)
[2022-02-07] MEDS: ceFAZolin 1000MG 1,000 MG/7.5 ML SYR IV SCH ×2 (04:44→12:24)
[2022-02-07] MEDS: POLYETHYLENE (MIRALAX) 17 GM PACK PO SCH ×2 (05:20→12:23)
[2022-02-07] MEDS: hydrOXYzine HCl 25 MG TAB PO PRN ×2 (05:23→15:26)
[2022-02-07] MEDS: dexAMETHasone 6 MG in SYRINGE 0 ML IV SCH ×3 (05:35→21:54)
[2022-02-07 08:20] LABS: Estimated Average Glucose 114 mg/dl; Hemoglobin A1C 5.6 % (4.5-5.6)
[2022-02-07] MEDS: oxyCODONE HCL IR 5 MG TAB (IMMEDIATE RELEASE) PO PRN ×4 (08:25→21:52)
[2022-02-07] MEDS: ESCITALOPRAM OXALATE 20 MG TAB PO SCH (08:26)
--- NOTE | 2022-02-07 08:45 | Orthopedic Progress Note ---
Date of Service February 07, 2022 Assessment & Plan (1) Cauda equina syndrome: Plan: At this time will monitor SEBASTIAN output. Initiate physical therapy today. Admission and Anticipated Discharge Date Admission Date: February 06, 2022 Subjective Patient's pain is improved. Still struggling with numbness and weakness. Physical Exam Physical Exam: On exam she appears comfortable. Still demonstrates strength deficits to the right lower extremity compared to the left. Results & Data ([facility]) Vital Signs (Past 12 Hours) Vital Signs Temp Pulse Pulse Resp BP Pulse Ox 02/07/22 07:38 36.6 C 75 18 115/71 96 02/07/22 04:25 36.5 C 94 H 18 117/75 95 02/07/22 01:05 36.9 C 91 H 16 120/77 93 02/07/22 00:03 36.6 C 90 16 112/75 93 02/06/22 23:31 37 C 84 18 112/74 92 02/06/22 23:00 36.9 C 88 18 119/82 96 02/06/22 22:50 36.2 C L 87 13 126/74 95 02/06/22 22:40 83 14 119/76 93 02/06/22 22:30 94 H 15 118/82 94 02/06/22 22:20 93 H 19 121/86 99 02/06/22 22:11 36.1 C L 92 H 18 134/95 100
[2022-02-07] MEDS ORDERED: estradioL 1 MG TAB PO SCH (09:00)
[2022-02-07] MEDS: ONDANSETRON 4 MG OD TAB PO PRN (10:00)
--- NOTE | 2022-02-07 11:40 | Psychiatric Consultation ---
Date of Consultation February 07, 2022 Psych History History of Present Illness patient was seen on consult service by Dr. Mcghee on 02/03, only briefly out of hospital. During last stay clearly identified providers, denied SI, and was pleased with medication regimen overall. Prn Vistaril was added to address breakthrough anxiety in place of benzos given fall risk. She requested to speak with service again for support while re-hospitalized. Liaison to update depression screen. This am patient was meeting with PT and then sleeping. No acute needs at this time. Will follow and complete more formal consultation prn this visit. Currently prescribed her Lexapro, trazodone, prn Vistaril appropriately. Allergies Allergy/AdvReac Type Severity Reaction Status Date / Time No Known Allergies Allergy Verified 01/28/22 16:20 Home Medications Medication Instructions Recorded Confirmed Type escitalopram oxalate 20 mg tablet 20 mg PO QAM 01/15/22 01/28/22 History (Lexapro) estradiol 1 mg tablet 1 mg PO QAM 01/15/22 01/28/22 History ondansetron HCl 4 mg tablet 4 mg PO Q6H PRN 01/15/22 01/28/22 History trazodone 100 mg tablet 200 mg PO HS 01/15/22 01/28/22 History oxycodone 5 mg tablet 5 mg PO Q6H PRN #30 tab 01/23/22 01/28/22 Rx tramadol 50 mg tablet 50 mg PO Q6H PRN #30 tab 01/23/22 01/28/22 Rx hydroxyzine HCl 25 mg tablet 25 mg PO Q6 PRN #30 tab 02/04/22 Rx tramadol 50 mg tablet 50 mg PO Q6H PRN #30 tab 02/04/22 Rx Personal History Beliefs That Will Affect Care: None Patient History Medical History Anxiety Cancer MELANOMA LEFT ARM/BACK-EXCISED Chronic back pain TO RIGHT LEG Depression Eating disorder ANOREXIA, BULIMIA-UNDER CONTROL CURRENTLY Esophagitis UNDER CONTROL Gastroparesis GERD (gastroesophageal reflux disease) UNDER CONTROL H/O Randi-Chicas syndrome Hiatal hernia History of unintended awareness under general anesthesia during a colonoscopy per PAT RN call with pt Temporomandibular joint disorder CLICKS-NO LOCKING Surgical History History of abdominoplasty History of appendectomy History of back surgery History of bladder surgery SLING History of cholecystectomy History of colonoscopy 2020 History of esophagogastroduodenoscopy (EGD) History of hysterectomy TOTAL Nausea and vomiting after administration of anesthetic agent Family History Father Family history of diabetes mellitus Grandmother (Maternal) Family hx of colon cancer Grandfather (Maternal) Family hx of colon cancer Social History Smoking Status: Never smoker Second Hand Exposure: No; Do You Dip or Chew Tobacco: No; Tobacco Cessation Education Requested by Patient: No Hx Alcohol Use: No Hx Substance Use: No Preferred Language: [place] Citizen Communication Ability: Effective 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: No Beliefs That Will Affect Care: None Current Living Situation: Family Current Living Situation Comment: 10 YR OLD [facility]ANDSON LIVES WITH PT current occupational status: retired Other Information That Helps Us Care for You: No Feels Safe at Home: Yes Safety Concerns: Feels Safe At This Time Assistive Devices: None Physical Exam Vital Signs (Past 24 Hours): Last Vital Signs Temp 36.6 C 02/07/22 07:38 Pulse 75 02/07/22 07:38 Resp 18 02/07/22 07:38 BP 115/71 02/07/22 07:38 Pulse Ox 96 02/07/22 07:38 Results & Data ([facility]) Medications Administered Diphenhydramine HCl (Diphenhydramine Capsule 25 Mg Cap) 25 mg PO Q6H PRN PRN Reason: Allergic Rhinitis/Insomnia Stop: 03/08/22 23:02 Last Admin: 02/07/22 00:06 Dose: 25 mg Documented by: [id number] Escitalopram Oxalate (Escitalopram Oxalate 20 Mg Tab) 20 mg PO QAM PRIMO Stop: 03/09/22 08:59 Last Admin: 02/07/22 08:26 Dose: 20 mg Documented by: [id number] Hydromorphone HCl (Hydromorphone Inj 1 Mg/Ml Syringe) 1 mg IV Q3H PRN PRN Reason: SEVERE Pain (Scale 7,8,9,10) Stop: 02/20/22 23:02 Last Admin: 02/07/22 09:53 Dose: 1 mg Documented by: [id number] Admin: 02/07/22 04:43 Dose: 1 mg Documented by: [id number] Admin: 02/07/22 00:06 Dose: 1 mg Documented by: [id number] Hydroxyzine HCl (Hydroxyzine Hcl 25 Mg Tab) 25 mg PO Q8H PRN PRN Reason: Anxiety Stop: 03/08/22 23:02 Last Admin: 02/07/22 05:23 Dose: 25 mg Documented by: [id number] Cefazolin Sodium (Ancef 1000mg) 1,000 mg in 7.5 mls @ 2.5 mls/min IV Q8H PRIMO; Protocol Stop: 02/07/22 12:02 Last Admin: 02/07/22 04:44 Dose: 2.5 mls/min Documented by: [id number] Dexamethasone 6 mg/ Syringe 1.5 mls @ 1 mls/min IV Q8H PRIMO Stop: 02/07/22 22:02 Last Admin: 02/07/22 05:35 Dose: 1 mls/min Documented by: [id number] Ondansetron HCl (Ondansetron 4 Mg Od Tab) 4 mg PO Q6H PRN PRN Reason: Nausea Stop: 03/08/22 23:02 Last Admin: 02/07/22 10:00 Dose: 4 mg Documented by: [id number] Oxycodone HCl (Oxycodone Hcl Ir 5 Mg Tab (Immediate Release)) 5 - 10 mg PO Q4H PRN PRN Reason: Pain & Pre PT Stop: 02/20/22 23:02 Last Admin: 02/07/22 08:25 Dose: 10 mg Documented by: [id number] Polyethylene Glycol (Polyethylene (Miralax) 17 Gm Pack) 17 gm PO Q6 PRIMO Stop: 03/09/22 05:59 Last Admin: 02/07/22 05:20 Dose: 17 gm Documented by: [id number] Coding Level of Care Code None
--- NOTE | 2022-02-07 14:30 | Hospitalist Progress Note ---
Date of Service February 07, 2022 Assessment & Plan (1) Cauda equina syndrome: Plan: 56-year-old lady with PMH of lumbar spinal stenosis status post surgery, anxiety/mood disorder/eating disorder, GERD/gastroparesis, malignant melanoma status post surgery, recent two confinements under orthopedic spine in the last month presented to our ED 02/06 with persistent right leg weakness and incontinence symptoms at home with low-grade fever. She is being managed for the following: #. Lumbar seroma #. Cauda equina syndrome #. Lumbar spinal stenosis status post surgery Patient underwent lumbar decompression surgery for LSS on January 23, 2022 Patient readmitted January 29 to February 04, 2022 for worsening back pain with RLE numbness/weakness and bowel/bladder incontinence, was treated for epidural seroma, was evaluated by psychiatry for anxiety and home issues. s/p irritation and drainage lumbar spine 02/06/[address] Beckman. Postop management [analgesia, PT, DVT Px] as per orthopedics. Incentive spirometry. #. anxiety/mood disorder/Eating disorder Psychiatry evaluated Appreciate psychiatry recommendation c/w home meds unless modified by psychiatry. #. Other chronic medical conditions: GERD/Gastroparesis c/w or resume home meds as and when appropriate. #. DVT prophylaxis: SCDs as per postop orders Text document was generated using voice recognition software. It may contain grammatical or spelling errors. Kindly contact undersigned for clarification of any documentation item in question. Admission and Anticipated Discharge Date Admission Date: February 06, 2022 Subjective Patient seen and examined at bedside as a follow-up of cauda equina syndrome/postop seroma status post surgery. Patient was lying in bed, on room air, NAD, reporting lower back pain and radiation to right lower extremity, eating okay, denies fever/chills/chest pain/palpitations/other review of symptoms. Per patient, patient does have no control of her bowel movements. Physical Exam Physical Exam: GENERAL: Alert and oriented x3. NAD, on RA. HEENT: No pallor, no icterus. Pupils equal, round and reactive to light. Oral mucosa moist. NECK: No JVD, no neck masses. HEART: S1 and S2 heard. Regular rate and rhythm. No murmur, no gallop. RESPIRATORY SYSTEM: Normal AP diameter. No accessory muscle use. No wheezing, no crackles. ABDOMEN: Soft, bowel sounds present, nontender, some distention. CENTRAL NERVOUS SYSTEM: No facial droop. Speech is clear. Obeys simple commands. Moves extremities. EXTREMITIES: No edema, no erythema seen. Lower back with clean dressing with no soakage. SEBASTIAN drain with minimal collection noted. Results & Data Results & Data ([facility]) Vital Signs (Past 12 Hours) Vital Signs Temp Pulse Resp BP Pulse Ox 02/07/22 07:38 36.6 C 75 18 115/71 96 02/07/22 04:25 36.5 C 94 H 18 117/75 95
[2022-02-07] MEDS: traMADol HCL 50 MG TABLET PO PRN (18:43)
[2022-02-07] MEDS: ACETAMINOPHEN 1,000 MG/100 ML VIAL IV PRN ×2 (19:44→20:08)
[2022-02-07] MEDS ORDERED: DOCUSATE SODIUM/SENNA 50/8.6MG TAB PO SCH (21:00)
[2022-02-07] MEDS: traZODone HCL 100 MG TAB PO SCH (21:53)
[2022-02-07] MEDS: ONDANSETRON INJ 2 MG/ML 2 ML VIAL IV PRN (22:38)
[2022-02-08] MEDS: oxyCODONE HCL IR 5 MG TAB (IMMEDIATE RELEASE) PO PRN (01:55)
[2022-02-08] MEDS: ACETAMINOPHEN 1,000 MG/100 ML VIAL IV PRN ×2 (05:40→14:09)
[2022-02-08 07:55] LABS: Hematocrit (blood only) 36.6 % (37-47); Hemoglobin 11.9 g/dL (12.0-16.0); Mean Corpuscular Hemoglobin 30.5 pg (25-34); Mean Corpuscular Hgb Conc 32.5 g/dL (32-36); Mean Corpuscular Volume 93.8 fL (80-100); Mean Platelet Volume 9.7 fL (7.4-10.4); Platelet Count 326 K/uL (130-400); RDW Standard Deviation 47.5 fL (36.4-46.3); White Blood Count 20.43 K/uL (4.8-10.8)
[2022-02-08] MEDS: ESCITALOPRAM OXALATE 20 MG TAB PO SCH (09:58)
[2022-02-08] MEDS: HYDROmorphone INJ 1 MG/ML SYRINGE IV PRN ×3 (10:02→21:21)
--- NOTE | 2022-02-08 11:38 | Orthopedic Progress Note ---
Date of Service February 08, 2022 Assessment & Plan (1) Cauda equina syndrome: Plan: At this time we will continue physical therapy monitor her SEBASTIAN output hopefully discharge home in the next few days. Admission and Anticipated Discharge Date Admission Date: February 06, 2022 Subjective Patient's back pain is still considerable. She is noting some improvement of her leg pain as well as bowel and bladder function. Physical Exam Physical Exam: On exam she does appear comfortable. She is having improvement of her strength the right lower extremity. Results & Data ([facility]) Vital Signs (Past 12 Hours) Vital Signs Temp Pulse Resp BP Pulse Ox 02/08/22 07:59 36.6 C 76 18 112/69 93
[2022-02-08] MEDS ORDERED: ceFAZolin 1000MG 1,000 MG/7.5 ML SYR IV ONE (11:39)
[2022-02-08] MEDS: ONDANSETRON INJ 2 MG/ML 2 ML VIAL IV PRN (13:01)
--- NOTE | 2022-02-08 13:23 | Communication Note ---
Date of Service: February 08, 2022 patient completed a phq-9 with liaison with total score of 2 (mainly fatigue which can be attributable to medical), denied SI. Denied additional needs at t his time.
--- NOTE | 2022-02-08 16:51 | Hospitalist Progress Note ---
Date of Service February 08, 2022 Assessment & Plan (1) Cauda equina syndrome: Plan: 56-year-old lady with PMH of lumbar spinal stenosis status post surgery, anxiety/mood disorder/eating disorder, GERD/gastroparesis, malignant melanoma status post surgery, recent two confinements under orthopedic spine in the last month presented to our ED 02/06 with persistent right leg weakness and incontinence symptoms at home with low-grade fever. She is being managed for the following: #. Lumbar seroma #. Cauda equina syndrome #. Lumbar spinal stenosis status post surgery Patient underwent lumbar decompression surgery for LSS on January 23, 2022 Patient readmitted January 29 to February 04, 2022 for worsening back pain with RLE numbness/weakness and bowel/bladder incontinence, was treated for epidural seroma, was evaluated by psychiatry for anxiety and home issues. s/p irritation and drainage lumbar spine 02/06/[address] Beckman. Postop management [analgesia, PT, DVT Px] as per orthopedics. Incentive spirometry. #. anxiety/mood disorder/Eating disorder Psychiatry evaluated Appreciate psychiatry recommendation c/w home meds unless modified by psychiatry. #. Other chronic medical conditions: GERD/Gastroparesis c/w or resume home meds as and when appropriate. #. DVT prophylaxis: SCDs as per postop orders Text document was generated using voice recognition software. It may contain grammatical or spelling errors. Kindly contact undersigned for clarification of any documentation item in question. Admission and Anticipated Discharge Date Admission Date: February 06, 2022 Subjective Patient seen and examined at bedside as a follow-up of cauda equina syndrome/postop seroma status post surgery. Patient was lying in bed, on room air, NAD, reporting lower back pain and radiation to right lower extremity, eating okay, denies fever/chills/chest pain/palpitations/other review of symptoms. Per patient, patient does have no control of her bowel movements and partial control with bladder movement. Physical Exam Physical Exam: GENERAL: Alert and oriented x3. NAD, on RA. HEENT: No pallor, no icterus. Pupils equal, round and reactive to light. Oral mucosa moist. NECK: No JVD, no neck masses. HEART: S1 and S2 heard. Regular rate and rhythm. No murmur, no gallop. RESPIRATORY SYSTEM: Normal AP diameter. No accessory muscle use. No wheezing, no crackles. ABDOMEN: Soft, bowel sounds present, nontender, some distention. CENTRAL NERVOUS SYSTEM: No facial droop. Speech is clear. Obeys simple com mands. Moves extremities. EXTREMITIES: No edema, no erythema seen. Lower back with clean dressing with no soakage. SEBASTIAN drain with minimal collection noted. Results & Data Results & Data ([facility]) Vital Signs (Past 12 Hours) Vital Signs Temp Pulse Resp BP Pulse Ox 02/08/22 15:48 36.7 C 81 18 107/70 95 02/08/22 07:59 36.6 C 76 18 112/69 93
[2022-02-08] MEDS: hydrOXYzine HCl 25 MG TAB PO PRN (18:12)
[2022-02-08] MEDS: ACETAMINOPHEN 500 MG TAB PO PRN (21:20)
[2022-02-08] MEDS: traZODone HCL 100 MG TAB PO SCH (21:21)
[2022-02-09] MEDS: oxyCODONE HCL IR 5 MG TAB (IMMEDIATE RELEASE) PO PRN ×2 (07:49→16:34)
[2022-02-09] MEDS: ESCITALOPRAM OXALATE 20 MG TAB PO SCH (07:50)
[2022-02-09 08:12] LABS: Hematocrit (blood only) 34.7 % (37-47); Hemoglobin 11.4 g/dL (12.0-16.0); Mean Corpuscular Hemoglobin 30.9 pg (25-34); Mean Corpuscular Hgb Conc 32.9 g/dL (32-36); Mean Platelet Volume 9.4 fL (7.4-10.4); Platelet Count 328 K/uL (130-400); RDW Coefficient of Variation 14.3 % (11.5-14.5); RDW Standard Deviation 48.9 fL (36.4-46.3); Red Blood Count 3.69 M/uL (4.2-5.4); White Blood Count 12.07 K/uL (4.8-10.8)
[2022-02-09] MEDS: ACETAMINOPHEN 500 MG TAB PO PRN ×2 (10:45→20:16)
--- NOTE | 2022-02-09 12:44 | Orthopedic Progress Note ---
Date of Service February 09, 2022 Assessment & Plan (1) Cauda equina syndrome: Plan: At this time we will continue physical therapy. Explained the patient that her bowel issues are combination of medications as well as the nerve compression from the seroma. This hopefully improve in time. I am encouraged that her walking is improving and her bladder function is intact. We will continue therapy hopefully discharge home later this week. Admission and Anticipated Discharge Date Admission Date: February 06, 2022 Subjective Patient still continues to have some right leg pain and noticed loss of bowel control earlier this morning. She states her urination is controlled. She is tolerating physical therapy. Physical Exam Physical Exam: On exam she appears comfortable. She continues to demonstrate breakaway weakness to testing the right lower extremity. The SEBASTIAN is functional. Results & Data ([facility]) Vital Signs (Past 12 Hours) Vital Signs Temp Pulse Resp BP Pulse Ox 02/09/22 08:08 36.4 C L 71 16 115/74 94
[2022-02-09] MEDS: hydrOXYzine HCl 25 MG TAB PO PRN (12:49)
--- NOTE | 2022-02-09 15:56 | Hospitalist Progress Note ---
Date of Service February 09, 2022 Assessment & Plan (1) Cauda equina syndrome: Plan: 56-year-old lady with PMH of lumbar spinal stenosis status post surgery, anxiety/mood disorder/eating disorder, GERD/gastroparesis, malignant melanoma status post surgery, recent two confinements under orthopedic spine in the last month presented to our ED 02/06 with persistent right leg weakness and incontinence symptoms at home with low-grade fever. She is being managed for the following: #. Lumbar seroma #. Cauda equina syndrome #. Lumbar spinal stenosis status post surgery Patient underwent lumbar decompression surgery for LSS on January 23, 2022 Patient readmitted January 29 to February 04, 2022 for worsening back pain with RLE numbness/weakness and bowel/bladder incontinence, was treated for epidural seroma, was evaluated by psychiatry for anxiety and home issues. s/p irritation and drainage lumbar spine 02/06/[address] Beckman. Postop management [analgesia, PT, DVT Px] as per orthopedics. Incentive spirometry. #. anxiety/mood disorder/Eating disorder Psychiatry evaluated Appreciate psychiatry recommendation c/w home meds. #. Other chronic medical conditions: GERD/Gastroparesis c/w or resume home meds as and when appropriate. #. DVT prophylaxis: SCDs as per postop orders Text document was generated using voice recognition software. It may contain grammatical or spelling errors. Kindly contact undersigned for clarification of any documentation item in question. Admission and Anticipated Discharge Date Admission Date: February 06, 2022 Subjective Patient seen and examined at bedside as a follow-up of cauda equina syndrome/postop seroma status post surgery. Patient was lying in bed, on room air, NAD, reporting lower back pain and radiation to right lower extremity, eating okay, denies fever/chills/chest pain/palpitations/other review of symptoms. Per patient, patient does have no control of her bowel movements and partial control with bladder movement. Physical Exam Physical Exam: GENERAL: Alert and oriented x3. NAD, on RA. HEENT: No pallor, no icterus. Pupils equal, round and reactive to light. Oral mucosa moist. NECK: No JVD, no neck masses. HEART: S1 and S2 heard. Regular rate and rhythm. No murmur, no gallop. RESPIRATORY SYSTEM: Normal AP diameter. No accessory muscle use. No wheezing, no crackles. ABDOMEN: Soft, bowel sounds present, nontender, some distention. CENTRAL NERVOUS SYSTEM: No facial droop. Speech is clear. Obeys simple commands. Moves extremities. EXTREMITIES: No edema, no erythema seen. Lower back with clean dressing with no soakage. SEBASTIAN drain with minimal collection noted. Results & Data Results & Data ([facility]) Vital Signs (Past 12 Hours) Vital Signs Temp Pulse Resp BP Pulse Ox 02/09/22 14:29 37 C 79 16 109/70 94 02/09/22 08:08 36.4 C L 71 16 115/74 94
[2022-02-09] MEDS: traZODone HCL 100 MG TAB PO SCH (20:17)
--- NOTE | 2022-02-09 21:06 | CT Scan Report ---
CT head/brain wo con CLINICAL HISTORY: 56 years-old Female with R sided numbness. Acute strokelike symptoms TECHNIQUE: Multiple axial CT images of the head were obtained without contrast. A dose lowering tech nique was utilized adhering to the principles of ALARA. COMPARISON: CT cervical spine of same day FINDINGS: No acute intracranial hemorrhage, midline shift, intracranial mass, hydrocephalus, territorial ischem ia or abnormal extra-axial collection. The calvarium is intact. The paranasal sinuses, mastoid air cells, and middle ear cavities are clear . IMPRESSION: No acute intracranial abnormality. ACT 112: Negative or not required by law. The above report was generated using voice recognition software. It may contain grammatical, syntax o r spelling errors. Electronically signed by: Timi Mahmood M.D. 02/09/2022 9:04 PM
--- NOTE | 2022-02-09 21:09 | CT Scan Report ---
CT cervical spine wo con CT DOSE: 960.72 mGy.cm CLINICAL HISTORY: 56 years-old Female with neck pain. Acute neck pain with right-sided numbness COMPARISON: Head CT of same day, MRI cervical spine 01/29/2022 TECHNIQUE: Multiple axial CT images of the cervical spine were obtained without contrast. A dose low ering technique was utilized adhering to the principles of ALARA. FINDINGS: No acute fracture or subluxation. Intervertebral disc space narrowing with uncovertebral hy pertrophy, posterior disc osteophyte complex formations and facet arthrosis redemonstrated, most pron ounced at the C5-C6 and C6-C7 levels. No endplate erosions. Developmental incomplete bony fusion invo lves the posterior arch of C1. Multilevel neural foraminal narrowing. Ill-defined groundglass densiti es of the right lung apex. No pneumothorax. Multinodular thyroid. No prevertebral edema. IMPRESSION: 1. No acute fracture or subluxation. 2. Degenerative changes of the cervical spine are better evaluated on the comparison MRI cervical spi ne study from 01/29/2022. ACT 112: Negative or not required by law. The above report was generated using voice recognition software. It may contain grammatical, syntax o r spelling errors. Electronically signed by: Timi Mahmood M.D. 02/09/2022 9:07 PM
[2022-02-10] MEDS: oxyCODONE HCL IR 5 MG TAB (IMMEDIATE RELEASE) PO PRN ×3 (00:49→20:06)
[2022-02-10] MEDS: ESCITALOPRAM OXALATE 20 MG TAB PO SCH (08:03)
--- NOTE | 2022-02-10 09:20 | Orthopedic Progress Note ---
Date of Service February 10, 2022 Assessment & Plan (1) Neurogenic claudication due to lumbar spinal stenosis: Plan: This time we will change her dressing DC drain today continue to monitor her anticipate possible discharge home tomorrow. Admission and Anticipated Discharge Date Admission Date: February 06, 2022 Subjective Patient complaining of some increasing back pain. Leg symptoms have stabilized. Bowel function is improved. Physical Exam Physical Exam: On exam she is able to sit up and stand without difficulty. The drain is no longer holding suction. I suspect it is partially pulled out and causing discomfort. Results & Data ([facility]) Vital Signs (Past 12 Hours) Vital Signs Temp Pulse Resp BP Pulse Ox 02/10/22 07:14 36.6 C 74 16 114/73 95 02/10/22 00:50 36.6 C 81 18 114/71 95
[2022-02-10] MEDS: hydrOXYzine HCl 25 MG TAB PO PRN (10:20)
[2022-02-10] MEDS: ACETAMINOPHEN 500 MG TAB PO PRN (11:56)
--- NOTE | 2022-02-10 16:42 | Hospitalist Progress Note ---
Date of Service February 10, 2022 Assessment & Plan (1) Cauda equina syndrome: Plan: 56-year-old lady with PMH of lumbar spinal stenosis status post surgery, anxiety/mood disorder/eating disorder, GERD/gastroparesis, malignant melanoma status post surgery, recent two confinements under orthopedic spine in the last month presented to our ED 02/06 with persistent right leg weakness and incontinence symptoms at home with low-grade fever. She is being managed for the following: #. Lumbar seroma #. Cauda equina syndrome #. Lumbar spinal stenosis status post surgery Patient underwent lumbar decompression surgery for LSS on January 23, 2022 Patient readmitted January 29 to February 04, 2022 for worsening back pain with RLE numbness/weakness and bowel/bladder incontinence, was treated for epidural seroma, was evaluated by psychiatry for anxiety and home issues. s/p irritation and drainage lumbar spine 02/06/[address] Beckman. Postop management [analgesia, PT, DVT Px] as per orthopedics. Incentive spirometry. #. anxiety/mood disorder/Eating disorder Psychiatry evaluated Appreciate psychiatry recommendation c/w home meds. #. Other chronic medical conditions: GERD/Gastroparesis c/w or resume home meds as and when appropriate. #. DVT prophylaxis: SCDs as per postop orders #. Disposition: per Ortho. Text document was generated using voice recognition software. It may contain grammatical or spelling errors. Kindly contact undersigned for clarification of any documentation item in question. Admission and Anticipated Discharge Date Admission Date: February 06, 2022 Subjective Patient seen and examined at bedside as a follow-up of cauda equina syndrome/postop seroma status post surgery. Patient was lying in bed, on room air, NAD, reporting lower back pain and radiation to right lower extremity which she reports is slightly improving, eating okay, denies fever/chills/chest pain/palpitations/other review of symptoms. Per patient, patient does have no control of her bowel movements and partial control with bladder movement. Physical Exam Physical Exam: GENERAL: Alert and oriented x3. NAD, on RA. HEENT: No pallor, no icterus. Pupils equal, round and reactive to light. Oral mucosa moist. NECK: No JVD, no neck masses. HEART: S1 and S2 heard. Regular rate and rhythm. No murmur, no gallop. RESPIRATORY SYSTEM: Normal AP diameter. No accessory muscle use. No wheezing, no crackles. ABDOMEN: Soft, bowel sounds present, nontender, some distention. CENTRAL NERVOUS SYSTEM: No facial droop. Speech is clear. Obeys simple commands. Moves extremities. EXTREMITIES: No edema, no erythema seen. Lower back with clean dressing with no soakage. Results & Data Results & Data ([facility]) Vital Signs (Past 12 Hours) Vital Signs Temp Pulse Resp BP Pulse Ox 02/10/22 14:02 36.9 C 85 16 91/56 L 94 02/10/22 07:14 36.6 C 74 16 114/73 95
[2022-02-10] MEDS: traMADol HCL 50 MG TABLET PO PRN (17:07)
[2022-02-10] MEDS: traZODone HCL 100 MG TAB PO SCH (21:42)
[2022-02-11 06:27] LABS: Hematocrit (blood only) 37.4 % (37-47); Hemoglobin 12.2 g/dL (12.0-16.0); Mean Corpuscular Hemoglobin 30.7 pg (25-34); Mean Corpuscular Hgb Conc 32.6 g/dL (32-36); Mean Platelet Volume 9.2 fL (7.4-10.4); Platelet Count 329 K/uL (130-400); RDW Coefficient of Variation 13.7 % (11.5-14.5); RDW Standard Deviation 47.3 fL (36.4-46.3); Red Blood Count 3.98 M/uL (4.2-5.4); White Blood Count 9.79 K/uL (4.8-10.8)
[2022-02-11] MEDS: ACETAMINOPHEN 500 MG TAB PO PRN (07:47)
[2022-02-11] MEDS: ESCITALOPRAM OXALATE 20 MG TAB PO SCH (07:47)
--- NOTE | 2022-02-11 08:15 | Hospitalist Progress Note ---
Date of Service February 11, 2022 Assessment & Plan (1) Cauda equina syndrome: Plan: 56 yo F with PMH of lumbar spinal stenosis s/p surgery, anxiety/mood disorder/eating disorder, GERD/gastroparesis, malignant melanoma status post surgery, recent two confinements under orthopedic spine in the last month presented to our ED 02/06 with persistent right leg weakness and incontinence symptoms at home with low-grade fever. She is being managed for the following: Lumbar seroma Cauda equina syndrome Lumbar spinal stenosis status post surgery Patient underwent lumbar decompression surgery for LSS on January 23, 2022 Patient readmitted January 29 to February 04, 2022 for worsening back pain with RLE numbness/weakness and bowel/bladder incontinence, was treated for epidural seroma, was evaluated by psychiatry for anxiety and home issues. s/p I &D lumbar spine 02/06/[address] Beckman. Postop management [analgesia, PT, DVT Px] as per orthopedics. Incentive spirometry. Anxiety/mood disorder/Eating disorder Psychiatry evaluated Appreciate psychiatry recommendation c/w home meds. Other chronic medical conditions: GERD/Gastroparesis c/w or resume home meds as and when appropriate. DVT prophylaxis: SCDs as per postop orders Disposition: per Ortho. Plan to DC today. Admission and Anticipated Discharge Date Admission Date: February 06, 2022 Subjective Patient seen and examined at bedside as a follow-up of cauda equina syndrome/postop seroma status post surgery. Pt is sitting up in bed, in NAD she reports that she is feeling better overall, lower back and RLE pain improving bowel incontinence also improving denies fever/chills/chest pain/palpitations/other review of symptoms. Review of Systems Review of Systems: All systems reviewed & are unremarkable except as noted in Subjective Physical Exam Physical Exam: GENERAL: Alert and oriented x3. NAD, on RA. HEENT: No pallor, no icteru s. Pupils equal, round and reactive to light. Oral m ucosa moist. NECK: No JVD, no neck masses. HEART: S1 and S2 heard. Re gular rate and rhy thm. No murmur, n o gallop. RESPIRAT ORY: Normal AP di ameter. No access ory muscle use. N o wheezing, no crate liner ckles. ABDOMEN: S oft, bowel sounds present, nontender , nondistended. NE URO: No facial dr oop. Speech is cl ear. Obeys simple commands. Moves extremities. EXTRE MITIES: No edema, no erythema seen. Results & Data Results & Data ([facility]) Vital Signs (Past 12 Hours) Vital Signs Temp Pulse Resp BP Pulse Ox 02/10/22 22:15 36.7 C 88 16 114/74 92 Laboratory Results 02/11/22 Range/Units 06:10 WBC 9.79 (4.8-10.8) K/uL RBC 3.98 L (4.2-5.4) M/uL Hgb 12.2 (12.0-16.0) g/dL Hct 37.4 (37-47) % MCV 94.0 (80-100) fL MCH 30.7 (25-34) pg MCHC 32.6 (32-36) g/dL RDW Std Deviation 47.3 H (36.4-46.3) fL RDW Coeff of Marybeth 13.7 (11.5-14.5) % Plt Count 329 (130-400) K/uL MPV 9.2 (7.4-10.4) fL Medications Administered Current Inpatient Medications Acetaminophen (Acetaminophen 500 Mg Tab) 1,000 mg PO Q8H PRN PRN Reason: MILD Pain Scale 1,2,3 & Pre PT Stop: 03/08/22 23:02 Last Admin: 02/11/22 07:47 Dose: 1,000 mg Documented by: Al Hydrox/Mg Hydrox/Simethicone (Aluminum/Magnesium Susp 30 Ml Udc) 30 ml PO Q6H PRN PRN Reason: Dyspepsia Stop: 03/08/22 23:02 Atropine Sulfate (Atropine Sulfate 0.1 Mg/Ml 10ml Syr) 0.5 mg IV Q1M PRN PRN Reason: PACU Use-HR<40 &/or Bradycardi Bisacodyl (Bisacodyl 10 Mg Supp) 10 mg AL DAILY PRN PRN Reason: Constipation Stop: 03/08/22 23:02 Diphenhydramine HCl (Diphenhydramine Capsule 25 Mg Cap) 25 mg PO Q6H PRN PRN Reason: Allergic Rhinitis/Insomnia Stop: 03/08/22 23:02 Last Admin: 02/07/22 00:06 Dose: 25 mg Documented by: Escitalopram Oxalate (Escitalopram Oxalate 20 Mg Tab) 20 mg PO QAM [facility] Stop: 03/09/22 08:59 Last Admin: 02/11/22 07:47 Dose: 20 mg Documented by: Famotidine (Famotidine 20 Mg Tab) 20 mg PO Q12H PRN PRN Reason: Dyspepsia Stop: 03/08/22 23:02 Hydromorphone HCl (Hydromorphone Inj 0.5 Mg/0.5 Ml Syr) 0.5 mg IV Q3H PRN PRN Reason: MODERATE Pain (Scale 4,5,6) & Pre PT Stop: 02/20/22 23:02 Hydromorphone HCl (Hydromorphone Inj 1 Mg/Ml Syringe) 1 mg IV Q3H PRN PRN Reason: SEVERE Pain (Scale 7,8,9,10) Stop: 02/20/22 23:02 Last Admin: 02/08/22 21:21 Dose: 1 mg Documented by: Hydroxyzine HCl (Hydroxyzine Hcl 25 Mg Tab) 25 mg PO Q8H PRN PRN Reason: Anxiety Stop: 03/08/22 23:02 Last Admin: 02/10/22 10:20 Dose: 25 mg Documented by: Promethazine HCl 12.5 mg/ (Sodium Chloride) 50.5 mls @ 202 mls/hr IV Q6H PRN PRN Reason: Nausea &/or Vomiting Stop: 03/08/22 23:02 Influenza Virus Vaccine Quadrival (Do Not Administer Flu Vaccine) 1 ea N/A PRN PRN PRN Reason: Notification Stop: 03/08/22 23:02 Magnesium Hydroxide (Magnesium Hydroxide Susp 30 Ml Udc) 30 ml PO Q24H PRN PRN Reason: Constipation Stop: 03/08/22 23:02 Metoclopramide HCl (Metoclopramide Hcl Inj 5 Mg/Ml 2 Ml Vial) 10 mg IV Q6H PRN PRN Reason: Nausea &/or Vomiting Stop: 03/08/22 23:02 Naloxone HCl (Naloxone Hcl 0.4 Mg/1 Ml Vial/Carp) 0.1 mg IV Q5M PRN PRN Reason: Oversedation/Resp depression Stop: 03/08/22 23:02 Ondansetron HCl (Ondansetron Inj 2 Mg/Ml 2 Ml Vial) 4 mg IV Q6H PRN PRN Reason: Nausea &/or Vomiting Stop: 03/08/22 23:02 Last Admin: 02/08/22 13:01 Dose: 4 mg Documented by: Ondansetron HCl (Ondansetron 4 Mg Od Tab) 4 mg PO Q6H PRN PRN Reason: Nausea Stop: 03/08/22 23:02 Last Admin: 02/07/22 10:00 Dose: 4 mg Documented by: Oxycodone HCl (Oxycodone Hcl Ir 5 Mg Tab (Immediate Release)) 5 - 10 mg PO Q4H PRN PRN Reason: Pain & Pre PT Stop: 02/20/22 23:02 Last Admin: 02/10/22 20:06 Dose: 10 mg Documented by: Pneumococcal Polyvalent Vaccine (Do Not Administer Pneumococcal Vaccine) 1 ea N/A PRN PRN PRN Reason: Notification Stop: 03/08/22 23:02 Sodium Biphosphate/Sodium Phosphate (Sod Phosphate/Sod Biphosphate Enema 132 Ml Btl) 132 ml AL ONE PRN PRN Reason: Constipation Stop: 03/08/22 23:02 Tramadol HCl (Tramadol Hcl 50 Mg Tablet) 50 - 100 mg PO Q4H PRN PRN Reason: Moderate-Severe pain & Pre PT Stop: 03/08/22 23:02 Last Admin: 02/10/22 17:07 Dose: 100 mg Documented by: Trazodone HCl (Trazodone Hcl 100 Mg Tab) 200 mg PO HS PRIMO Stop: 03/09/22 20:59 Last Admin: 02/10/22 21:42 Dose: 200 mg Documented by:
[2022-02-11] MEDS: ONDANSETRON 4 MG OD TAB PO PRN (09:25)
--- NOTE | 2022-02-11 11:05 | Discharge Summary ---
Date of Service February 11, 2022 Admission HPI Per Admitting Provider This is a 56-year-old female known to me that presents with marked decline in status over the past day. She is noting loss of bowel bladder control worsening of right leg symptoms and right leg numbness including the perineal area. She is status post I&D a week ago was discharged earlier this week having completed physical therapy and able to ascend and descend steps. She is walking comfortably often without a walker. Principal Diagnosis Postoperative seroma with cauda equina syndrome Discharge Data Allergies Allergy/AdvReac Type Severity Reaction Status Date / Time No Known Allergies Allergy Verified 01/28/22 16:20 Consultations 02/06/22 23:03 Consult Hospitalist Routine 02/06/22 23:36 Consult Psychiatry Routine Procedures Performed Operation Date: 02/06/22 20:30 Actual Procedures p Irrigation and Drainage Lumbar Spine(Not Applicable) - Dl Beckman DO Ordered Studies 02/06/22 16:42 MR lumbar spine wo con Stat 02/09/22 20:32 CT head/brain wo con Urgent 02/09/22 20:39 CT cervical spine wo con Urgent Hospital Course (1) Cauda equina syndrome: Patient was admitted last Wednesday evening underwent emergent I&D lumbar spine secondary to a seroma. She presented with significant neural decline and evidence of cauda equina syndrome. She tolerated the procedure well was taken orthopedic for postop Talib. Initiated physical therapy throughout the weekend. She progressed appropriately. Her bowel function is steadily improving. Urination improving. Inability to ambulate improving. Still some motor deficit to the right lower extremity. SEBASTIAN drain was discontinued she tolerated this well and subsequently discharged home. Discharge orders instructions were on the chart for further review. Total Time Total Time Spent Total Time Spent (In Minutes): 20 minutes Discharge Plan Discharge Items Patient Disposition: Home - Self-Care Reason For Visit: POSTOP Discharge Diagnosis: Postop seroma with cauda equina syndrome Activity: Per Instructions section Non-emergency contact: Primary Care Provider Call non-emergency contact if: you have any medication questions Follow-up/Referrals: Dilan Tucker MD [Primary Care Provider] - Diet: Regular Addtl Attending Provider Instructions: ACTIVITY RECOMMENDATIONS: SELF CARE INSTRUCTIONS AFTER THORACIC/LUMBAR FUSIONS 1. You may walk to your tolerance. It is good exercise for your legs and back. Expect some back and intermittent leg aches and pains. 2. You may perform "counter-top" level activities (make a sandwich, ruth with a project, etc.). 3. No bending or lifting of more than 10 pounds or back twisting of any nature (roll like a log when turning in bed). 4. You may ride in a car for 20-30 minutes at a time. No driving until after your first visit with your doctor. 5. Frequent changes of position and restricting sitting to 30 minutes at a time will help limit the amount of back spasms and stiffness you may experience. 6. You may discontinue the use of ambulatory aids (cane, crutches, etc.) once your strength and confidence allow. 7. You may lead generation marketing manager the shower and let water strike your incision when you arrive home at least once daily. Do not take a tub bath, sit in a hot tub or go into a swimming pool until after your first recheck in the office. SPECIAL CARE INSTRUCTIONS: VERY IMPORTANT TO READ AND REVIEW A. Your surgical incision has been closed with a cosmetic suture under the skin that will dissolve in about 6 weeks. In 14 days, you can use a pair of clean scissors and cut the suture that is left outside of the skin at the ends of your incision. 1. The small skin tapes can be removed 7 days after surgery if they have not fallen off by that point. 2. You may keep the wound open to air as much as possible to promote healing after post-op day number 5 unless told otherwise by your doctor. 3. If you think the wound looks like it is becoming infected (redness or worsening drainage) and/or you are experiencing fever, chill or worsening back pain and muscle spasms, contact the office so that we may evaluate you as soon as possible. B. Complications are uncommon, but please contact us if you have any signs or symptoms of: 1. wound infection (fever higher than 102.5 degrees F, redness, separation of wound, drainage, or increasing pain from the incision) 2. blood clots in legs (pain, swelling, redness and warmth in legs) 3. urinary tract infection (fever higher than 102.5 degrees F, burning upon urination or increased frequency of urination) 4. nerve problems (inability to walk on your toes or heels, numbness, loss of bowel or bladder control) 5. any other symptoms that concern you C. Please call the office at if you have any concerns or questions about your operation or recovery. D. No smoking! Smoking drastically decreases the chance of a solid fusion. E. Do not take any anti-inflammatory medications (Indocin, Advil, Motrin, Aspirin, Naprosyn, etc.) as these may inhibit the chance of a solid fusion. Tylenol is okay to take for pain. MANAGING PAIN AFTER SPINAL SURGERY 1. Narcotic medication is intended for short-term use and will be provided for surgical pain. Surgical pain usually lasts for a period of 4-6 weeks. Narcotic medication includes Percocet, Vicodin, Darvocet, Tylenol #3 or Lortab. 2. Longer-term pain is more appropriately treated with non-narcotic medication such as Tylenol ES. 3. Muscle spasm is not appropriately treated with narcotics. Muscle relaxers such as Soma, Flexeril or Skelaxin can be used along with Tylenol ES. 4. Remember that we all live with some "aches and pains". This is not unusual or uncommon after an injury or as we get older. a. Back pain is expected and may include muscle spasms for 4 to 6 weeks after surgery. The pain should gradually improve. If the pain worsens for no apparent reason, please contact the office. b. Intermittent leg pain may also be experienced and should not be concerned about unless it worsens for no apparent reason. If so, please contact the office. 5. We will provide appropriate medication within the normal guidelines of their prescribed use. We will also be very cautious and aware of potential abuse and extended duration of patients' medication needs. a. Pain medications are for your comfort and to assist with sleep and rest so that the tissue can heal. They are not provided in order to return to normal activity and should not be used through the day. To do so or worsening pain at night can result from ongoing tissue damage and development of tolerance to the prescribed medicine. 6. Please allow 2-3 days to process refills. Prescriptions will not be mailed but must be picked up at the office. FOLLOW UP VISIT: Keep your scheduled follow-up appointment. Any questions, please call the office at . Pending Studies at Discharge: No Stand-Alone Forms: My [facility], Smoking Cessation Medications and DC Order Prescriptions: New tramadol 50 mg tablet 50 mg PO Q6H PRN (Reason: pain, moderate) Qty: 30 RF: 0 ondansetron 4 mg Tablet,Disintegrating 4 mg PO Q6H PRN (Reason: nausea and vomiting) Qty: 30 RF: 0 Continued ondansetron HCl 4 mg Tablet 4 mg PO Q6H PRN (Reason: Nausea) RF: 0 estradiol 1 mg Tablet 1 mg PO QAM RF: 0 trazodone 100 mg Tablet 200 mg PO HS RF: 0 escitalopram oxalate [Lexapro] 20 mg Tablet 20 mg PO QAM RF: 0 tramadol 50 mg tablet 50 mg PO Q6H PRN (Reason: pain, moderate) Qty: 30 RF: 0 hydroxyzine HCl 25 mg Tablet 25 mg PO Q6 PRN (Reason: anxiety) Qty: 30 RF: 0 tramadol 50 mg tablet 50 mg PO Q6H PRN (Reason: pain, moderate) Qty: 30 RF: 0 Discontinued oxycodone 5 mg tablet 5 mg PO Q6H PRN (Reason: pain, severe) Qty: 30 RF: 0 Discharge Orders: Discharge Order (Routine); Ordered 02/11/22 Ordered By: Dl Branch/Other Patient Handouts: DVT Post Op Prevention Admission Data Admit Date/Time: 02/06/22 21:49 Attending Provider: Dl Beckman Admit Provider: Dl Beckman Primary Care Provider: Dilan Tucker Other Providers: Jessica Mcghee ; Bhavani Ko ; Susan Todd ; Jaime Alcantar Other Interventions: Discharge Summary Assessment (RN) Last Done: 02/11/22 10:14
== END 2022-02-11 15:10 | disposition home health service (06) | DRG 920 ==
LOC: ED 15:36 → 3W 21:03 → OR 21:03 → 3W 21:49